=== PATIENT | male | born 1940 | race Caucasian/White ===

== ENCOUNTER 2016-11-29 15:28 | Inpatient (IN) | payer MEDICARE, MEDICAID ==
--- NOTE | 2016-11-29 15:32 | ED Physician Chart ---
ED Chief Complaint/HPI - Patient Information Date Seen:: 11/29/16 Time Seen:: 15:30 Chief Complaint:: Agitation History of Present Illness:: onset x 2 days of agitation, anxiety, and combative behavior; no SIs, hallucinations, H/As, neck pain, C/P, SOB, Abd, pain, A/N/V/D/C, fever, chills, or urinary s/s Historian:: Patient, EMS Review:: Nurse's Note Reviewed, Old Chart Reviewed, EMS run form Reviewed, Transfer documents Reviewed ED Review of Systems - Review of Systems General/Constitutional: No fever, No chills, No weight loss, No weakness, No diaphoresis, No edema, No loss of appetite Skin: No skin lesions, No rash, No bruising Head: No headache, No light-headedness Eyes: No loss of vision, No pain, No diplopia ENT: No earache, No nasal drainage, No sore throat, No tinnitus Neck: No neck pain, No swelling, No thyromegaly, No stiffness, No mass noted Cardio Vascular: No chest pain, No palpitations, No PND, No orthopnea, No edema Pulmonary: No SOB, No cough, No sputum, No wheezing GI: No nausea, No vomiting, No diarrhea, No pain, No melena, No hematochezia, No constipation, No hematemesis G/U: No dysuria, No frequency, No hematuria Musculoskeletal: No bone or joint pain, No back pain, No muscle pain Endocrine: No polyuria, No polydipsia Psychiatric: Prior psych history, Depression, Anxiety, No suicidal ideation, No homicidal ideation, No auditory hallucination, No visual hallucination Hematopoietic: No bruising, No lymphadenopathy Allergic/Immuno: No urticaria, No angioedema Neurological: No syncope, No focal symptoms, No weakness, No paresthesia, No headache, No seizure, No dizziness, Confusion, No vertigo ED Past Medical History - Past Medical History Obtainable: Yes Past Medical History: HTN, CVA/TIA, Dyslipidemia, Dementia, Other (UTI) Family History: Diabetes Melitus, HTN Social History: Non Smoker, No Alcohol, No Drug Use, Single, Care Facility Surgical History: None Psychiatricy History: Bipolar, Dementia Medication: Reviewed Family Medical History - Family Member Mother History Unknown: Yes Ethnicity: ED Physical Exam - Physical Examination General/Constitutional: Awake, Well-developed, well-nourished, Alert, No distress, GCS 15, Non-toxic appearing, Ambulatory Head: Atraumatic Eyes: Lids, conjuctiva normal, PERRL, EOMI Skin: Nl inspection, No rash, No skin lesions, No ecchymosis, Well hydrated, No lymphadenopathy ENMT: External ears, nose nl, Nasal exam nl, Lips, teeth, gums nl Neck: Nontender, Full ROM w/o pain, No JVD, No nuchal rigidity, No bruit, No mass, No stridor Respiratory: Nl effort/Exclusion, Clear to Auscultation, No Wheeze/Rhonchi/Rales Cardio Vascular: RRR, No murmur, gallop, rubs, NL S1 S2 GI: No tenderness/rebounding/guarding, No organomegaly, No hernia, Normal BS's, Nondistended, No mass/bruits, No McBurney tenderness : No CVA tenderness Extremities: No tenderness or effusion, Full ROM, normal strength in all extremities, No edema, Normal digits & nails Neuro/Psych: Alert/oriented, DTR's symmetric, Normal sensory exam, Normal motor strength, Normal gait, No focal deficits Other Neuro/Psych comments:: + Psychomotor Agitation; no SIs; Mood/Affect: Labile Misc: Normal back, No paraspinal tenderness ED Labs/Radiology/EKG Results - Lab Results Comments:: unremarkable ED Septic Shock - . Is Septic Shock (SBP<90, OR Lactate>4 mmol\L) present?: No ED Reassessment (Disposition) - Reassessment Reassessment Condition:: Improved - Diagnosis Diagnosis:: Agitation; Dementia; Manic-Depression; BiPolar Disorder - Aftercare/Follow up Instructions Aftercare/Follow-Up Instructions:: Counseled pt regarding lab results/diagnosis & need follow up, Counseled pt & family regarding lab results/diagnosis & need follow up - Patient Disposition Discharge/Transfer:: Acute Care w/in this hosp Admitted to:: [facility] Condition at Disposition:: Stable, Improved
[2016-11-29 16:05] LABS: % BASOPHILS 0.7 % (0.0-2.0); % LYMPHOCYTES 35.8 % (20.0-50.0); % NEUTROPHILS 54.5 % (40.0-80.0); HEMATOCRIT 45.8 % (41.0-60); HEMOGLOBIN 15.7 gm/dL (12-16); MEAN CELL VOLUME 90.2 fl (80-99); MEAN CORPUSCULAR HEMOGLOBIN 30.9 pg (27.0-31.0); MEAN CORPUSCULAR HGB CONC 34.2 pg (28.0-36.0); MEAN PLATELET VOLUME 8.6 fl; PLATELET COUNT 234 Th/cmm (150-400); RED BLOOD COUNT 5.08 Mil/cmm (3.80-5.80); RED CELL DISTRIBUTION WIDTH 12.9 % (11.5-20.0); WHITE BLOOD COUNT 9.3 Th/cmm (4.8-10.8)
[2016-11-29 16:18] LABS: ACETAMINOPHEN < 10.0 ug/mL (10.0-30.0); ALB/GLOB RATIO 1.6 (1.0-1.8); ALKALINE PHOSPHATASE 58 U/L (34-104); ANION GAP 12.6 (7.0-16.0); BILIRUBIN,TOTAL 0.6 mg/dL (0.3-1.0); BUN - UREA NITROGEN 26 mg/dL (7-25); BUN/CREATININE RATIO 28.9; CALCIUM SERUM 9.1 mg/dL (8.6-10.3); CARBON DIOXIDE 23.4 mEq/L (21.0-31.0); CHLORIDE 106 mEq/L (98-107); CHOLESTEROL 130 mg/dL (<200); CREATININE - SERUM 0.9 mg/dL (0.7-1.3); GLUCOSE 115 mg/dL (70-105); SGOT 21 U/L (13-39); SGPT/ALT 21 U/L (7-52); SODIUM SERUM 138 mEq/L (136-145); TRIGLYCERIDES 193 mg/dL (<150)
[2016-11-29] MEDS ORDERED: Levofloxacin 500mg/100mL 500 MG/100 ML BAG IV ONE (16:18)
[2016-11-29 20:17] VITALS: BP 132/82
[2016-11-29] MEDS ORDERED: Magnesium Hydroxide (MOM) 30 mL UDC PO PRN (20:43)
[2016-11-30] MEDS ORDERED: Non-Formulary Item 1 EA (Cranberry Fruit Concentrate [Cranberry] 450 MG) PO SCH (09:00)
--- NOTE | 2016-11-30 09:22 | History and Physical ---
History of Present Illness - HPI Vital Signs: Last Vital Signs Temp 98 F 11/30/16 06:34 Pulse 69 11/30/16 06:34 Resp 19 11/30/16 06:34 BP 107/67 11/30/16 06:34 Pulse Ox 97 11/30/16 06:34 Family Medical History - Family Member Mother History Unknown: Yes Ethnicity: Unknown Living Status: Unknown Hx Family Cancer: (Unknown) Hx Family Coronary Artery Disease: (Unknown) Hx Family Congestive Heart Failure: (Unknown) Hx Family Hypertension: (Unknown) Hx Family Stroke: (Unknown) Hx Family Diabetes: (Unknown) Hx Family Seizures: (Unknown) Hx Family Dementia: (Unknown) Hx Family AIDS: (Unknown) Hx Family COPD: (Unknown) Hx Family Hepatitis: (Unknown) Hx Family Psychiatric Problems: (Unknown) Hx Family Tuberculosis: (Unknown) - Medications Home Medications: Home Medication Medication Instructions Recorded Type Acetaminophen [Tylenol] 650 mg PO Q4HR PRN 11/29/16 History Cranberry Fruit Concentrate 450 mg PO DAILY 11/29/16 History [Cranberry] Docusate Sodium [Colace] 100 mg PO DAILY 11/29/16 History Zolpidem Tartrate [Ambien] 5 mg PO HS 11/29/16 History busPIRone [Buspar] 5 mg PO BID 11/29/16 History - Allergies Allergies/Adverse Reactions: Allergies Allergy/AdvReac Type Severity Reaction Status Date / Time Penicillins [PCN] AdvReac Verified 11/29/16 15:36 - Lab Results All Lab Results last 24 hours: Laboratory Last Values WBC 9.3 Th/cmm (4.8-10.8) 11/29/16 15:56 RBC 5.08 Mil/cmm (3.80-5.80) 11/29/16 15:56 Hgb 15.7 gm/dL (12-16) 11/29/16 15:56 Hct 45.8 % (41.0-60) 11/29/16 15:56 MCV 90.2 fl (80-99) 11/29/16 15:56 MCH 30.9 pg (27.0-31.0) 11/29/16 15:56 MCHC Differential 34.2 pg (28.0-36.0) 11/29/16 15:56 RDW 12.9 % (11.5-20.0) 11/29/16 15:56 Plt Count 234 Th/cmm (150-400) 11/29/16 15:56 MPV 8.6 fl 11/29/16 15:56 Neutrophils % 54.5 % (40.0-80.0) 11/29/16 15:56 Lymphocytes % 35.8 % (20.0-50.0) 11/29/16 15:56 Monocytes % 7.0 % (2.0-10.0) 11/29/16 15:56 Eosinophils % 2.0 % (0.0-5.0) 11/29/16 15:56 Basophils % 0.7 % (0.0-2.0) 11/29/16 15:56 Sodium 138 mEq/L (136-145) 11/29/16 15:56 Potassium 4.0 mEq/L (3.5-5.1) 11/29/16 15:56 Chloride 106 mEq/L (98-107) 11/29/16 15:56 Carbon Dioxide 23.4 mEq/L (21.0-31.0) 11/29/16 15:56 Anion Gap 12.6 (7.0-16.0) 11/29/16 15:56 BUN 26 mg/dL (7-25) H 11/29/16 15:56 Creatinine 0.9 mg/dL (0.7-1.3) 11/29/16 15:56 Est GFR ( Amer) TNP 11/29/16 15:56 Est GFR (Non-Af Amer) TNP 11/29/16 15:56 BUN/Creatinine Ratio 28.9 11/29/16 15:56 Glucose 115 mg/dL (70-105) H 11/29/16 15:56 Calcium 9.1 mg/dL (8.6-10.3) 11/29/16 15:56 Total Bilirubin 0.6 mg/dL (0.3-1.0) 11/29/16 15:56 AST 21 U/L (13-39) 11/29/16 15:56 ALT 21 U/L (7-52) 11/29/16 15:56 Alkaline Phosphatase 58 U/L (34-104) 11/29/16 15:56 Total Protein 7.0 gm/dL (6.0-8.3) 11/29/16 15:56 Albumin 4.3 gm/dL (4.2-5.5) 11/29/16 15:56 Globulin 2.7 gm/dL 11/29/16 15:56 Albumin/Globulin Ratio 1.6 (1.0-1.8) 11/29/16 15:56 Triglycerides 193 mg/dL (<150) H 11/29/16 15:56 Cholesterol 130 mg/dL (<200) 11/29/16 15:56 LDL Cholesterol Direct 65 mg/dL (75-193) L 11/29/16 15:56 HDL Cholesterol 43 mg/dL (23-92) 11/29/16 15:56 TSH 1.13 uIU/ml (0.34-5.60) 11/29/16 15:56 Salicylates < 25.0 mg/L (30.0-100.0) L 11/29/16 15:56 Acetaminophen < 10.0 ug/mL (10.0-30.0) L 11/29/16 15:56 Ethyl Alcohol < 10 mg/dL (0-10) 11/29/16 15:56
--- NOTE | 2016-11-30 21:59 | History & Physical ---
ADMIT DATE: 11/29/2016 HISTORY OF PRESENT ILLNESS: This is a male patient from [place]. The patient is very agitated and anxious, combative behavior, was brought to the Emergency Room. The patient was seen in the ER and the patient was admitted to Geropsych Unit. The patient is complaining of no fever, no chills, and no rigors. No nausea and no vomiting. REVIEW OF SYSTEMS: Otherwise, negative. PAST MEDICAL HISTORY: History of hypertension and diabetes. No other medical problems. PHYSICAL EXAMINATION: GENERAL: Awake, alert, and oriented male patient. VITAL SIGNS: Noted. HEAD: Normal. ENT: Normal. NECK: Supple, nontender. LUNGS: Clear. CARDIOVASCULAR SYSTEM: S1, S2 heard. ABDOMEN: Soft. Bowel sounds heard. CENTRAL NERVOUS SYSTEM: Grossly normal. DIAGNOSES: Severe agitation, rule out history of diabetes and history of hypertension was made. PLAN: I will follow the medical problems and I will have Dr. Rodriguez see the patient for Geropsych. [facility]# [id number]
--- NOTE | 2016-12-01 01:43 | Psychosocial Evaluation ---
DATE OF SERVICE: 11/29/2016 PHYSICIAN: Dr. Rodriguez. CHIEF COMPLAINT: Agitation and aggressive behavior. HISTORY OF PRESENT ILLNESS: The patient is a 75-year-old male who was transferred to the hospital from assisted because of increased agitation and aggressive behavior. The patient has been in angry and in irritable mood. The patient also has been restless and has not been able to follow any of staff directions. Chart reviewed and patient interviewed. The patient was helped from staff with translation to [place] language since the patient does not speak [place]. The patient is paranoid and is not answering questions because of his paranoia. The patient also is easily agitated and wants to be left alone. The patient also is trying to hit staff during helping him with his ADLs and also when the blasting machine operator tried to speak with him in [place], he became angry, was yelling and wanted to be left alone. He has been having severe mood swings also. Also, the patient seems to be preoccupied and responding. PAST PSYCHIATRIC HISTORY: The patient has history of what seems to be psychosis and agitation. Also, the patient seems to have history of dementia. SOCIAL HISTORY: The patient lives in a assisted ____. No known alcohol or street drug use. ALLERGIES: No known allergies. MENTAL STATUS EXAMINATION: The patient appears his stated age. Anxious. Irritable mood. Thought process, poverty of speech. The patient did not answer questions in spite of having blasting machine operator to [place]. The patient seems to be preoccupied. Personal hygiene is poor. The patient is alert, but unable to assess ____ mental status exam because the patient is refusing to answer questions. Poor insight. Poor judgment. ASSESSMENT: PRIMARY DIAGNOSIS: Unspecified psychosis. SECONDARY DIAGNOSIS: Dementia, moderate to severe. TREATMENT PLAN: We will start the patient on Seroquel and we will increase the BuSpar. We will start individual as well as milieu psychotherapy. We will monitor patient closely for further evaluation and further recommendations. ESTIMATED LENGTH OF STAY: 7-10 days. THE PATIENT'S STRENGTHS AND WEAKNESSES: The patient's strength is not clear except he is ____ health. Weaknesses is his poor impulse control and ineffective coping. AFTER DISCHARGE PLAN: Outpatient treatment and followup will continue as an outpatient. CRITERIA FOR DISCHARGE: The patient will not be psychotic and will stabilize psychotropic medications and will establish outpatient treatment plans. JOB# [id number]
--- NOTE | 2016-12-01 07:06 | Progress Notes ---
DATE: 12/01/2016 SUBJECTIVE: Chart reviewed and the patient interviewed. Also discussed the patient's condition with the staff and reviewed records and labs. The patient still has episodes of severe anger and is still yelling and screaming. The patient also is still resisting care and is easily irritable and easily agitated, also is aggressive with the staff when they are trying to help him with his ADLs. The patient also is confused and restless. He on the other hand has been taking his medications and did not refuse medications yesterday according to staff. ASSESSMENT: The patient is still psychotic and is still considered to be dangerous to others and confused. TREATMENT PLAN: We will continue monitoring his behavior and his condition closely. Also, continue to work on his irritability and on his poor impulse control. JOB# [id number]
--- NOTE | 2016-12-01 10:08 | General Progress Note ---
Subjective - Review of Systems Events since last encounter: patient continues to be psychotic ,unpredictable denies pain Objective - Results Result Diagrams: 11/29/16 15:56 11/29/16 15:56 Recent Labs: Laboratory Last Values WBC 9.3 Th/cmm (4.8-10.8) 11/29/16 15:56 RBC 5.08 Mil/cmm (3.80-5.80) 11/29/16 15:56 Hgb 15.7 gm/dL (12-16) 11/29/16 15:56 Hct 45.8 % (41.0-60) 11/29/16 15:56 MCV 90.2 fl (80-99) 11/29/16 15:56 MCH 30.9 pg (27.0-31.0) 11/29/16 15:56 MCHC Differential 34.2 pg (28.0-36.0) 11/29/16 15:56 RDW 12.9 % (11.5-20.0) 11/29/16 15:56 Plt Count 234 Th/cmm (150-400) 11/29/16 15:56 MPV 8.6 fl 11/29/16 15:56 Neutrophils % 54.5 % (40.0-80.0) 11/29/16 15:56 Lymphocytes % 35.8 % (20.0-50.0) 11/29/16 15:56 Monocytes % 7.0 % (2.0-10.0) 11/29/16 15:56 Eosinophils % 2.0 % (0.0-5.0) 11/29/16 15:56 Basophils % 0.7 % (0.0-2.0) 11/29/16 15:56 Sodium 138 mEq/L (136-145) 11/29/16 15:56 Potassium 4.0 mEq/L (3.5-5.1) 11/29/16 15:56 Chloride 106 mEq/L (98-107) 11/29/16 15:56 Carbon Dioxide 23.4 mEq/L (21.0-31.0) 11/29/16 15:56 Anion Gap 12.6 (7.0-16.0) 11/29/16 15:56 BUN 26 mg/dL (7-25) H 11/29/16 15:56 Creatinine 0.9 mg/dL (0.7-1.3) 11/29/16 15:56 Est GFR ( Amer) TNP 11/29/16 15:56 Est GFR (Non-Af Amer) TNP 11/29/16 15:56 BUN/Creatinine Ratio 28.9 11/29/16 15:56 Glucose 115 mg/dL (70-105) H 11/29/16 15:56 Calcium 9.1 mg/dL (8.6-10.3) 11/29/16 15:56 Total Bilirubin 0.6 mg/dL (0.3-1.0) 11/29/16 15:56 AST 21 U/L (13-39) 11/29/16 15:56 ALT 21 U/L (7-52) 11/29/16 15:56 Alkaline Phosphatase 58 U/L (34-104) 11/29/16 15:56 Total Protein 7.0 gm/dL (6.0-8.3) 11/29/16 15:56 Albumin 4.3 gm/dL (4.2-5.5) 11/29/16 15:56 Globulin 2.7 gm/dL 11/29/16 15:56 Albumin/Globulin Ratio 1.6 (1.0-1.8) 11/29/16 15:56 Triglycerides 193 mg/dL (<150) H 11/29/16 15:56 Cholesterol 130 mg/dL (<200) 11/29/16 15:56 LDL Cholesterol Direct 65 mg/dL (75-193) L 11/29/16 15:56 HDL Cholesterol 43 mg/dL (23-92) 11/29/16 15:56 TSH 1.13 uIU/ml (0.34-5.60) 11/29/16 15:56 Salicylates < 25.0 mg/L (30.0-100.0) L 11/29/16 15:56 Acetaminophen < 10.0 ug/mL (10.0-30.0) L 11/29/16 15:56 Ethyl Alcohol < 10 mg/dL (0-10) 11/29/16 15:56 - Physical Exam Vitals and I&O: Vital Signs Temp 98.3 F 12/01/16 06:54 Pulse 60 12/01/16 06:54 Resp 18 12/01/16 06:54 BP 126/74 12/01/16 06:54 Pulse Ox 96 12/01/16 06:54 Intake & Output 11/30/16 12/01/16 12/01/16 18:59 06:59 18:59 Intake Total 820 Balance 820 Intake: Oral 820 Other: # Voids 3 # Bowel Movements 0 Active Medications: Current Medications Acetaminophen (Tylenol) 650 mg PO Q4HR PRN PRN Reason: Pain (Mild) Stop: 01/28/17 20:56 Buspirone HCl (Buspar) 10 mg PO BID [facility] PRN Reason: Protocol Stop: 01/29/17 08:59 Last Admin: 12/01/16 08:55 Dose: 10 mg Docusate Sodium (Colace) 100 mg PO DAILY [facility] Stop: 01/29/17 08:59 Last Admin: 12/01/16 08:55 Dose: 100 mg Lorazepam (Ativan) 1 mg PO Q6H PRN; Protocol PRN Reason: Anxiety/Agitation Stop: 01/28/17 20:42 Magnesium Hydroxide (Milk Of Magnesia) 30 ml PO HS PRN PRN Reason: Constipation Stop: 01/28/17 20:42 Quetiapine Fumarate (Seroquel) 25 mg PO BID [facility] PRN Reason: Protocol Stop: 01/29/17 08:59 Last Admin: 12/01/16 08:55 Dose: 25 mg Zolpidem Tartrate (Ambien) 5 mg PO HS [facility] Stop: 01/28/17 20:59 Last Admin: 11/30/16 20:56 Dose: 5 mg
--- NOTE | 2016-12-01 13:34 | Internal Medicine Prog Note ---
Internal Medicine Subjective - Subjective Service Date: 12/01/16 Patient seen and examined:: with staff Patient is:: awake Per staff patient has:: no adverse event Internal Medicine Objective - Results Result Diagrams: 11/29/16 15:56 11/29/16 15:56 Recent Labs: Laboratory Last Values WBC 9.3 Th/cmm (4.8-10.8) 11/29/16 15:56 RBC 5.08 Mil/cmm (3.80-5.80) 11/29/16 15:56 Hgb 15.7 gm/dL (12-16) 11/29/16 15:56 Hct 45.8 % (41.0-60) 11/29/16 15:56 MCV 90.2 fl (80-99) 11/29/16 15:56 MCH 30.9 pg (27.0-31.0) 11/29/16 15:56 MCHC Differential 34.2 pg (28.0-36.0) 11/29/16 15:56 RDW 12.9 % (11.5-20.0) 11/29/16 15:56 Plt Count 234 Th/cmm (150-400) 11/29/16 15:56 MPV 8.6 fl 11/29/16 15:56 Neutrophils % 54.5 % (40.0-80.0) 11/29/16 15:56 Lymphocytes % 35.8 % (20.0-50.0) 11/29/16 15:56 Monocytes % 7.0 % (2.0-10.0) 11/29/16 15:56 Eosinophils % 2.0 % (0.0-5.0) 11/29/16 15:56 Basophils % 0.7 % (0.0-2.0) 11/29/16 15:56 Sodium 138 mEq/L (136-145) 11/29/16 15:56 Potassium 4.0 mEq/L (3.5-5.1) 11/29/16 15:56 Chloride 106 mEq/L (98-107) 11/29/16 15:56 Carbon Dioxide 23.4 mEq/L (21.0-31.0) 11/29/16 15:56 Anion Gap 12.6 (7.0-16.0) 11/29/16 15:56 BUN 26 mg/dL (7-25) H 11/29/16 15:56 Creatinine 0.9 mg/dL (0.7-1.3) 11/29/16 15:56 Est GFR ( Amer) TNP 11/29/16 15:56 Est GFR (Non-Af Amer) TNP 11/29/16 15:56 BUN/Creatinine Ratio 28.9 11/29/16 15:56 Glucose 115 mg/dL (70-105) H 11/29/16 15:56 Calcium 9.1 mg/dL (8.6-10.3) 11/29/16 15:56 Total Bilirubin 0.6 mg/dL (0.3-1.0) 11/29/16 15:56 AST 21 U/L (13-39) 11/29/16 15:56 ALT 21 U/L (7-52) 11/29/16 15:56 Alkaline Phosphatase 58 U/L (34-104) 11/29/16 15:56 Total Protein 7.0 gm/dL (6.0-8.3) 11/29/16 15:56 Albumin 4.3 gm/dL (4.2-5.5) 11/29/16 15:56 Globulin 2.7 gm/dL 11/29/16 15:56 Albumin/Globulin Ratio 1.6 (1.0-1.8) 11/29/16 15:56 Triglycerides 193 mg/dL (<150) H 11/29/16 15:56 Cholesterol 130 mg/dL (<200) 11/29/16 15:56 LDL Cholesterol Direct 65 mg/dL (75-193) L 11/29/16 15:56 HDL Cholesterol 43 mg/dL (23-92) 11/29/16 15:56 TSH 1.13 uIU/ml (0.34-5.60) 11/29/16 15:56 Salicylates < 25.0 mg/L (30.0-100.0) L 11/29/16 15:56 Acetaminophen < 10.0 ug/mL (10.0-30.0) L 11/29/16 15:56 Ethyl Alcohol < 10 mg/dL (0-10) 11/29/16 15:56 - Physical Exam Vitals and I&O: Vital Signs Temp 98.3 F 12/01/16 06:54 Pulse 60 12/01/16 06:54 Resp 18 12/01/16 06:54 BP 126/74 12/01/16 06:54 Pulse Ox 96 12/01/16 06:54 Intake & Output 11/30/16 12/01/16 12/01/16 18:59 06:59 18:59 Intake Total 820 Balance 820 Intake: Oral 820 Other: # Voids 3 # Bowel Movements 0 Active Medications: Current Medications Acetaminophen (Tylenol) 650 mg PO Q4HR PRN PRN Reason: Pain (Mild) Stop: 01/28/17 20:56 Buspirone HCl (Buspar) 10 mg PO BID [facility] PRN Reason: Protocol Stop: 01/29/17 08:59 Last Admin: 12/01/16 08:55 Dose: 10 mg Docusate Sodium (Colace) 100 mg PO DAILY [facility] Stop: 01/29/17 08:59 Last Admin: 12/01/16 08:55 Dose: 100 mg Lorazepam (Ativan) 1 mg PO Q6H PRN; Protocol PRN Reason: Anxiety/Agitation Stop: 01/28/17 20:42 Magnesium Hydroxide (Milk Of Magnesia) 30 ml PO HS PRN PRN Reason: Constipation Stop: 01/28/17 20:42 Quetiapine Fumarate (Seroquel) 25 mg PO BID [facility] PRN Reason: Protocol Stop: 01/29/17 08:59 Last Admin: 12/01/16 08:55 Dose: 25 mg Zolpidem Tartrate (Ambien) 5 mg PO HS [facility] Stop: 01/28/17 20:59 Last Admin: 11/30/16 20:56 Dose: 5 mg General: alert HEENT: NC/AT, PERRLA Neck: Supple Lungs: CTAB Cardiovascular: RRR Abdomen: soft, non-tender, non-distended, positive bowel sound Extremities: excoriation Internal Medicine Assmt/Plan - Assessment Assessment: SEVERE AGITATION R/O DM HTN - Plan Plan: fall precautions continue current plan of care
--- NOTE | 2016-12-03 09:29 | General Progress Note ---
Subjective - Review of Systems Events since last encounter: no acute distress Objective - Results Result Diagrams: 11/29/16 15:56 11/29/16 15:56 Recent Labs: Laboratory Last Values WBC 9.3 Th/cmm (4.8-10.8) 11/29/16 15:56 RBC 5.08 Mil/cmm (3.80-5.80) 11/29/16 15:56 Hgb 15.7 gm/dL (12-16) 11/29/16 15:56 Hct 45.8 % (41.0-60) 11/29/16 15:56 MCV 90.2 fl (80-99) 11/29/16 15:56 MCH 30.9 pg (27.0-31.0) 11/29/16 15:56 MCHC Differential 34.2 pg (28.0-36.0) 11/29/16 15:56 RDW 12.9 % (11.5-20.0) 11/29/16 15:56 Plt Count 234 Th/cmm (150-400) 11/29/16 15:56 MPV 8.6 fl 11/29/16 15:56 Neutrophils % 54.5 % (40.0-80.0) 11/29/16 15:56 Lymphocytes % 35.8 % (20.0-50.0) 11/29/16 15:56 Monocytes % 7.0 % (2.0-10.0) 11/29/16 15:56 Eosinophils % 2.0 % (0.0-5.0) 11/29/16 15:56 Basophils % 0.7 % (0.0-2.0) 11/29/16 15:56 Sodium 138 mEq/L (136-145) 11/29/16 15:56 Potassium 4.0 mEq/L (3.5-5.1) 11/29/16 15:56 Chloride 106 mEq/L (98-107) 11/29/16 15:56 Carbon Dioxide 23.4 mEq/L (21.0-31.0) 11/29/16 15:56 Anion Gap 12.6 (7.0-16.0) 11/29/16 15:56 BUN 26 mg/dL (7-25) H 11/29/16 15:56 Creatinine 0.9 mg/dL (0.7-1.3) 11/29/16 15:56 Est GFR ( Amer) TNP 11/29/16 15:56 Est GFR (Non-Af Amer) TNP 11/29/16 15:56 BUN/Creatinine Ratio 28.9 11/29/16 15:56 Glucose 115 mg/dL (70-105) H 11/29/16 15:56 Calcium 9.1 mg/dL (8.6-10.3) 11/29/16 15:56 Total Bilirubin 0.6 mg/dL (0.3-1.0) 11/29/16 15:56 AST 21 U/L (13-39) 11/29/16 15:56 ALT 21 U/L (7-52) 11/29/16 15:56 Alkaline Phosphatase 58 U/L (34-104) 11/29/16 15:56 Total Protein 7.0 gm/dL (6.0-8.3) 11/29/16 15:56 Albumin 4.3 gm/dL (4.2-5.5) 11/29/16 15:56 Globulin 2.7 gm/dL 11/29/16 15:56 Albumin/Globulin Ratio 1.6 (1.0-1.8) 11/29/16 15:56 Triglycerides 193 mg/dL (<150) H 11/29/16 15:56 Cholesterol 130 mg/dL (<200) 11/29/16 15:56 LDL Cholesterol Direct 65 mg/dL (75-193) L 11/29/16 15:56 HDL Cholesterol 43 mg/dL (23-92) 11/29/16 15:56 TSH 1.13 uIU/ml (0.34-5.60) 11/29/16 15:56 Salicylates < 25.0 mg/L (30.0-100.0) L 11/29/16 15:56 Acetaminophen < 10.0 ug/mL (10.0-30.0) L 11/29/16 15:56 Ethyl Alcohol < 10 mg/dL (0-10) 11/29/16 15:56 RPR NONREACTIVE (NONREACTIVE) 11/29/16 15:56 - Physical Exam Vitals and I&O: Vital Signs Temp 97.8 F 12/03/16 06:52 Pulse 94 12/03/16 06:52 Resp 19 12/03/16 06:52 BP 141/80 12/03/16 06:52 Pulse Ox 96 12/03/16 06:52 Intake & Output 12/02/16 12/03/16 12/03/16 18:59 06:59 18:59 Intake Total 850 240 Balance 850 240 Intake: Oral 850 240 Other: # Voids 4 1 # Bowel Movements 1 Active Medications: Current Medications Acetaminophen (Tylenol) 650 mg PO Q4HR PRN PRN Reason: Pain (Mild) Stop: 01/28/17 20:56 Buspirone HCl (Buspar) 10 mg PO BID [facility] PRN Reason: Protocol Stop: 01/29/17 08:59 Last Admin: 12/02/16 17:19 Dose: 10 mg Docusate Sodium (Colace) 100 mg PO DAILY [facility] Stop: 01/29/17 08:59 Last Admin: 12/02/16 14:47 Dose: Not Given Lorazepam (Ativan) 1 mg PO Q6H PRN; Protocol PRN Reason: Anxiety/Agitation Stop: 01/28/17 20:42 Last Admin: 12/03/16 00:17 Dose: 1 mg Magnesium Hydroxide (Milk Of Magnesia) 30 ml PO HS PRN PRN Reason: Constipation Stop: 01/28/17 20:42 Quetiapine Fumarate (Seroquel) 25 mg PO BID [facility] PRN Reason: Protocol Stop: 01/29/17 08:59 Last Admin: 12/02/16 17:20 Dose: 25 mg Zolpidem Tartrate (Ambien) 5 mg PO HS ELVA Stop: 01/28/17 20:59 Last Admin: 12/02/16 21:52 Dose: 5 mg General: No acute distress HEENT: Atraumatic Cardiovascular: Regular rate, Normal S1 Assessment/Plan - Problem List Patient Problems: All Active Problems H/O diabetes mellitus (Acute) Z86.39 H/O: HTN (hypertension) (Acute) Z86.79 severe agitation (Acute) - Plan Plan: cpm
--- NOTE | 2016-12-03 09:53 | Progress Notes ---
DATE: Covering for Dr. Rodriguez. SUBJECTIVE: The patient was seen and evaluated. The patient's chart reviewed. Overnight nursing staff reporting the patient reports that the patient is easily irritable, easily agitated, disorganized and observed to be hearing voices. Today on [id number] evaluation, the patient is observed to be having very difficult to engage in the conversation as he easily derails, unable to engage in meaningful conversation. MENTAL STATUS EXAMINATION: Disorganized disheveled, isolative, withdrawn, disorganized. ASSESSMENT AND PLAN: The patient is a 75-year-old male who continues to present labile, psychotic, but still episodes of severe anger, yelling, screaming, unable to formulate a safe plan outside the structured environment. We will continue with primary psychiatrist's treatment plan and goals of quetiapine 25 mg p.o. b.i.d. as he is still reaching steady state and Ambien 5 in the at nighttime with BuSpar to assist with the severe anxiety. We will continue monitoring and evaluating and continue with primary psychiatrist's treatment plan and goals. JOB# [id number]
--- NOTE | 2016-12-03 20:56 | Progress Notes ---
DATE: 12/03/2016 SUBJECTIVE: The patient was seen and evaluated. The patient's chart was reviewed. Overnight nursing staff reported the patient has not slept well. He mostly was up all night. Today on [id number] evaluation, the patient continues to be easily disorganized, observed to be responding, and very preoccupied about going home and very confused easily derails. MENTAL STATUS EXAMINATION: Easily derails, isolative, disorganized, disheveled, and withdrawn. ASSESSMENT AND PLAN: The patient is a 75-year-old male who continues to be still very labile, very poor insomnia that impaired his ability to sleep well, exacerbating a lot of his symptoms. We will continue monitoring and evaluating. We will continue consolidating the quetiapine 50 mg at nighttime to target the patient's severe which exacerbates the patient's insomnia and paranoia. JOB# [id number]
--- NOTE | 2016-12-04 11:19 | Progress Notes ---
DATE: 12/04/2016 SUBJECTIVE: Chart reviewed and the patient interviewed. Also discussed the patient's condition with the staff and reviewed records and labs. The patient continued to be in angry and in irritable mood and actively hallucinating. The patient reports to staff that he is seeing "scorpions." He also has been paranoid and has been easily agitated and suspicious and fighting with the staff. Also, is having difficulty following directions. ASSESSMENT: The patient is still severely psychotic and is still easily agitated and can be dangerous to others. TREATMENT PLAN: We will continue monitoring his behavior and his condition closely. Also, we will increase Seroquel to 50 mg twice a day and 50 mg at bedtime. We will continue to follow up. JOB# [id number]
--- NOTE | 2016-12-04 14:07 | Internal Medicine Prog Note ---
Internal Medicine Subjective - Subjective Service Date: 12/04/16 Patient is:: awake Per staff patient has:: no adverse event Internal Medicine Objective - Results Result Diagrams: 11/29/16 15:56 11/29/16 15:56 Recent Labs: Laboratory Last Values WBC 9.3 Th/cmm (4.8-10.8) 11/29/16 15:56 RBC 5.08 Mil/cmm (3.80-5.80) 11/29/16 15:56 Hgb 15.7 gm/dL (12-16) 11/29/16 15:56 Hct 45.8 % (41.0-60) 11/29/16 15:56 MCV 90.2 fl (80-99) 11/29/16 15:56 MCH 30.9 pg (27.0-31.0) 11/29/16 15:56 MCHC Differential 34.2 pg (28.0-36.0) 11/29/16 15:56 RDW 12.9 % (11.5-20.0) 11/29/16 15:56 Plt Count 234 Th/cmm (150-400) 11/29/16 15:56 MPV 8.6 fl 11/29/16 15:56 Neutrophils % 54.5 % (40.0-80.0) 11/29/16 15:56 Lymphocytes % 35.8 % (20.0-50.0) 11/29/16 15:56 Monocytes % 7.0 % (2.0-10.0) 11/29/16 15:56 Eosinophils % 2.0 % (0.0-5.0) 11/29/16 15:56 Basophils % 0.7 % (0.0-2.0) 11/29/16 15:56 Sodium 138 mEq/L (136-145) 11/29/16 15:56 Potassium 4.0 mEq/L (3.5-5.1) 11/29/16 15:56 Chloride 106 mEq/L (98-107) 11/29/16 15:56 Carbon Dioxide 23.4 mEq/L (21.0-31.0) 11/29/16 15:56 Anion Gap 12.6 (7.0-16.0) 11/29/16 15:56 BUN 26 mg/dL (7-25) H 11/29/16 15:56 Creatinine 0.9 mg/dL (0.7-1.3) 11/29/16 15:56 Est GFR ( Amer) TNP 11/29/16 15:56 Est GFR (Non-Af Amer) TNP 11/29/16 15:56 BUN/Creatinine Ratio 28.9 11/29/16 15:56 Glucose 115 mg/dL (70-105) H 11/29/16 15:56 Calcium 9.1 mg/dL (8.6-10.3) 11/29/16 15:56 Total Bilirubin 0.6 mg/dL (0.3-1.0) 11/29/16 15:56 AST 21 U/L (13-39) 11/29/16 15:56 ALT 21 U/L (7-52) 11/29/16 15:56 Alkaline Phosphatase 58 U/L (34-104) 11/29/16 15:56 Total Protein 7.0 gm/dL (6.0-8.3) 11/29/16 15:56 Albumin 4.3 gm/dL (4.2-5.5) 11/29/16 15:56 Globulin 2.7 gm/dL 11/29/16 15:56 Albumin/Globulin Ratio 1.6 (1.0-1.8) 11/29/16 15:56 Triglycerides 193 mg/dL (<150) H 11/29/16 15:56 Cholesterol 130 mg/dL (<200) 11/29/16 15:56 LDL Cholesterol Direct 65 mg/dL (75-193) L 11/29/16 15:56 HDL Cholesterol 43 mg/dL (23-92) 11/29/16 15:56 TSH 1.13 uIU/ml (0.34-5.60) 11/29/16 15:56 Salicylates < 25.0 mg/L (30.0-100.0) L 11/29/16 15:56 Acetaminophen < 10.0 ug/mL (10.0-30.0) L 11/29/16 15:56 Ethyl Alcohol < 10 mg/dL (0-10) 11/29/16 15:56 RPR NONREACTIVE (NONREACTIVE) 11/29/16 15:56 - Physical Exam Vitals and I&O: Vital Signs Temp 97.7 F 12/04/16 06:52 Pulse 71 12/04/16 06:52 Resp 18 12/04/16 06:52 BP 115/56 12/04/16 06:52 Pulse Ox 95 12/04/16 06:52 Intake & Output 12/03/16 12/04/16 12/04/16 18:59 06:59 18:59 Intake Total 800 240 Balance 800 240 Intake: Oral 800 240 Other: # Voids 4 3 # Bowel Movements 1 0 Active Medications: Current Medications Acetaminophen (Tylenol) 650 mg PO Q4HR PRN PRN Reason: Pain (Mild) Stop: 01/28/17 20:56 Buspirone HCl (Buspar) 10 mg PO BID [facility] PRN Reason: Protocol Stop: 01/29/17 08:59 Last Admin: 12/03/16 16:39 Dose: 10 mg Docusate Sodium (Colace) 100 mg PO DAILY [facility] Stop: 01/29/17 08:59 Last Admin: 12/03/16 09:49 Dose: 100 mg Lorazepam (Ativan) 1 mg PO Q6H PRN; Protocol PRN Reason: Anxiety/Agitation Stop: 01/28/17 20:42 Last Admin: 12/03/16 23:02 Dose: 1 mg Magnesium Hydroxide (Milk Of Magnesia) 30 ml PO HS PRN PRN Reason: Constipation Stop: 01/28/17 20:42 Quetiapine Fumarate (Seroquel) 50 mg PO BID [facility] PRN Reason: Protocol Stop: 02/01/17 16:59 Last Admin: 12/03/16 16:39 Dose: 50 mg Zolpidem Tartrate (Ambien) 5 mg PO HS [facility] Stop: 01/28/17 20:59 Last Admin: 12/03/16 21:16 Dose: 5 mg General: alert HEENT: NC/AT, PERRLA Neck: Supple Lungs: CTAB Cardiovascular: RRR Abdomen: soft, non-tender, non-distended, positive bowel sound Extremities: excoriation Internal Medicine Assmt/Plan - Assessment Assessment: SEVERE AGITATION R/O DM HTN - Plan Plan: fall precautions continue current plan of care
--- NOTE | 2016-12-04 17:23 | Progress Notes ---
DATE: SUBJECTIVE: The patient was seen in his room, lying on the bed. The patient is a poor historian due to medical condition. According to the nurses, the patient still has episodes of confusion, restlessness, and agitation. Otherwise, the patient appears to be calm at this time. OBJECTIVE: VITAL SIGNS: Temperature 98.4, blood pressure 110/64, heart rate ____, respiration of 18, and 96% on room air. HEENT: Head is atraumatic and normocephalic. Eyes: Bilateral conjunctivae are clear. Bilateral pupils are equally round and reactive. NECK: Supple. No JVD. CARDIOVASCULAR: S1 and S2, without murmur. PULMONARY: Clear to auscultation. GASTROINTESTINAL: Soft and nontender without guarding. Positive bowel sounds. MUSCULOSKELETAL: No clubbing, no cyanosis noted. ASSESSMENT: 1. Psychosis. 2. Anxiety. 3. History of hypertension. 4. History of diabetes mellitus. 5. Osteoarthritis. PLAN: We will continue to keep the patient admitted in Psychiatric Unit. We will follow up with the psychiatrist to monitor the patient's condition and behavior. Treatment plans were discussed with the patient's nurse. Treatment plans were discussed with Dr. Rolle. JOB# [id number]
--- NOTE | 2016-12-05 15:11 | General Progress Note ---
Subjective - Review of Systems Events since last encounter: patient still psychotic Objective - Results Result Diagrams: 11/29/16 15:56 11/29/16 15:56 Recent Labs: Laboratory Last Values WBC 9.3 Th/cmm (4.8-10.8) 11/29/16 15:56 RBC 5.08 Mil/cmm (3.80-5.80) 11/29/16 15:56 Hgb 15.7 gm/dL (12-16) 11/29/16 15:56 Hct 45.8 % (41.0-60) 11/29/16 15:56 MCV 90.2 fl (80-99) 11/29/16 15:56 MCH 30.9 pg (27.0-31.0) 11/29/16 15:56 MCHC Differential 34.2 pg (28.0-36.0) 11/29/16 15:56 RDW 12.9 % (11.5-20.0) 11/29/16 15:56 Plt Count 234 Th/cmm (150-400) 11/29/16 15:56 MPV 8.6 fl 11/29/16 15:56 Neutrophils % 54.5 % (40.0-80.0) 11/29/16 15:56 Lymphocytes % 35.8 % (20.0-50.0) 11/29/16 15:56 Monocytes % 7.0 % (2.0-10.0) 11/29/16 15:56 Eosinophils % 2.0 % (0.0-5.0) 11/29/16 15:56 Basophils % 0.7 % (0.0-2.0) 11/29/16 15:56 Sodium 138 mEq/L (136-145) 11/29/16 15:56 Potassium 4.0 mEq/L (3.5-5.1) 11/29/16 15:56 Chloride 106 mEq/L (98-107) 11/29/16 15:56 Carbon Dioxide 23.4 mEq/L (21.0-31.0) 11/29/16 15:56 Anion Gap 12.6 (7.0-16.0) 11/29/16 15:56 BUN 26 mg/dL (7-25) H 11/29/16 15:56 Creatinine 0.9 mg/dL (0.7-1.3) 11/29/16 15:56 Est GFR ( Amer) TNP 11/29/16 15:56 Est GFR (Non-Af Amer) TNP 11/29/16 15:56 BUN/Creatinine Ratio 28.9 11/29/16 15:56 Glucose 115 mg/dL (70-105) H 11/29/16 15:56 Calcium 9.1 mg/dL (8.6-10.3) 11/29/16 15:56 Total Bilirubin 0.6 mg/dL (0.3-1.0) 11/29/16 15:56 AST 21 U/L (13-39) 11/29/16 15:56 ALT 21 U/L (7-52) 11/29/16 15:56 Alkaline Phosphatase 58 U/L (34-104) 11/29/16 15:56 Total Protein 7.0 gm/dL (6.0-8.3) 11/29/16 15:56 Albumin 4.3 gm/dL (4.2-5.5) 11/29/16 15:56 Globulin 2.7 gm/dL 11/29/16 15:56 Albumin/Globulin Ratio 1.6 (1.0-1.8) 11/29/16 15:56 Triglycerides 193 mg/dL (<150) H 11/29/16 15:56 Cholesterol 130 mg/dL (<200) 11/29/16 15:56 LDL Cholesterol Direct 65 mg/dL (75-193) L 11/29/16 15:56 HDL Cholesterol 43 mg/dL (23-92) 11/29/16 15:56 TSH 1.13 uIU/ml (0.34-5.60) 11/29/16 15:56 Salicylates < 25.0 mg/L (30.0-100.0) L 11/29/16 15:56 Acetaminophen < 10.0 ug/mL (10.0-30.0) L 11/29/16 15:56 Ethyl Alcohol < 10 mg/dL (0-10) 11/29/16 15:56 RPR NONREACTIVE (NONREACTIVE) 11/29/16 15:56 - Physical Exam Vitals and I&O: Vital Signs Temp 97.0 F 12/05/16 14:28 Pulse 70 12/05/16 14:28 Resp 20 12/05/16 14:28 BP 128/63 12/05/16 14:28 Pulse Ox 96 12/05/16 14:28 Intake & Output 12/04/16 12/05/16 12/05/16 18:59 06:59 18:59 Intake Total 1800 360 Balance 1800 360 Intake: Oral 1800 360 Other: # Voids 4 1 # Bowel Movements 0 Active Medications: Current Medications Acetaminophen (Tylenol) 650 mg PO Q4HR PRN PRN Reason: Pain (Mild) Stop: 01/28/17 20:56 Buspirone HCl (Buspar) 10 mg PO BID [facility] PRN Reason: Protocol Stop: 01/29/17 08:59 Last Admin: 12/05/16 09:11 Dose: 10 mg Docusate Sodium (Colace) 100 mg PO DAILY [facility] Stop: 01/29/17 08:59 Last Admin: 12/05/16 09:11 Dose: 100 mg Lorazepam (Ativan) 1 mg PO Q6H PRN; Protocol PRN Reason: Anxiety/Agitation Stop: 01/28/17 20:42 Last Admin: 12/03/16 23:02 Dose: 1 mg Magnesium Hydroxide (Milk Of Magnesia) 30 ml PO HS PRN PRN Reason: Constipation Stop: 01/28/17 20:42 Quetiapine Fumarate (Seroquel) 50 mg PO BID [facility] PRN Reason: Protocol Stop: 02/01/17 16:59 Last Admin: 12/05/16 09:11 Dose: 50 mg Zolpidem Tartrate (Ambien) 5 mg PO HS [facility] Stop: 01/28/17 20:59 Last Admin: 12/04/16 23:15 Dose: Not Given General: No acute distress HEENT: Atraumatic Cardiovascular: Regular rate, Normal S1 Assessment/Plan - Problem List Patient Problems: All Active Problems H/O diabetes mellitus (Acute) Z86.39 H/O: HTN (hypertension) (Acute) Z86.79 severe agitation (Acute) - Plan Plan: cpm
--- NOTE | 2016-12-06 11:52 | General Progress Note ---
Subjective - Review of Systems Events since last encounter: patient awake with no distress still psychotic Objective - Results Result Diagrams: 11/29/16 15:56 11/29/16 15:56 Recent Labs: Laboratory Last Values WBC 9.3 Th/cmm (4.8-10.8) 11/29/16 15:56 RBC 5.08 Mil/cmm (3.80-5.80) 11/29/16 15:56 Hgb 15.7 gm/dL (12-16) 11/29/16 15:56 Hct 45.8 % (41.0-60) 11/29/16 15:56 MCV 90.2 fl (80-99) 11/29/16 15:56 MCH 30.9 pg (27.0-31.0) 11/29/16 15:56 MCHC Differential 34.2 pg (28.0-36.0) 11/29/16 15:56 RDW 12.9 % (11.5-20.0) 11/29/16 15:56 Plt Count 234 Th/cmm (150-400) 11/29/16 15:56 MPV 8.6 fl 11/29/16 15:56 Neutrophils % 54.5 % (40.0-80.0) 11/29/16 15:56 Lymphocytes % 35.8 % (20.0-50.0) 11/29/16 15:56 Monocytes % 7.0 % (2.0-10.0) 11/29/16 15:56 Eosinophils % 2.0 % (0.0-5.0) 11/29/16 15:56 Basophils % 0.7 % (0.0-2.0) 11/29/16 15:56 Sodium 138 mEq/L (136-145) 11/29/16 15:56 Potassium 4.0 mEq/L (3.5-5.1) 11/29/16 15:56 Chloride 106 mEq/L (98-107) 11/29/16 15:56 Carbon Dioxide 23.4 mEq/L (21.0-31.0) 11/29/16 15:56 Anion Gap 12.6 (7.0-16.0) 11/29/16 15:56 BUN 26 mg/dL (7-25) H 11/29/16 15:56 Creatinine 0.9 mg/dL (0.7-1.3) 11/29/16 15:56 Est GFR ( Amer) TNP 11/29/16 15:56 Est GFR (Non-Af Amer) TNP 11/29/16 15:56 BUN/Creatinine Ratio 28.9 11/29/16 15:56 Glucose 115 mg/dL (70-105) H 11/29/16 15:56 Calcium 9.1 mg/dL (8.6-10.3) 11/29/16 15:56 Total Bilirubin 0.6 mg/dL (0.3-1.0) 11/29/16 15:56 AST 21 U/L (13-39) 11/29/16 15:56 ALT 21 U/L (7-52) 11/29/16 15:56 Alkaline Phosphatase 58 U/L (34-104) 11/29/16 15:56 Total Protein 7.0 gm/dL (6.0-8.3) 11/29/16 15:56 Albumin 4.3 gm/dL (4.2-5.5) 11/29/16 15:56 Globulin 2.7 gm/dL 11/29/16 15:56 Albumin/Globulin Ratio 1.6 (1.0-1.8) 11/29/16 15:56 Triglycerides 193 mg/dL (<150) H 11/29/16 15:56 Cholesterol 130 mg/dL (<200) 11/29/16 15:56 LDL Cholesterol Direct 65 mg/dL (75-193) L 11/29/16 15:56 HDL Cholesterol 43 mg/dL (23-92) 11/29/16 15:56 TSH 1.13 uIU/ml (0.34-5.60) 11/29/16 15:56 Salicylates < 25.0 mg/L (30.0-100.0) L 11/29/16 15:56 Acetaminophen < 10.0 ug/mL (10.0-30.0) L 11/29/16 15:56 Ethyl Alcohol < 10 mg/dL (0-10) 11/29/16 15:56 RPR NONREACTIVE (NONREACTIVE) 11/29/16 15:56 - Physical Exam Vitals and I&O: Vital Signs Temp 97.7 F 12/06/16 05:39 Pulse 61 12/06/16 05:39 Resp 19 12/06/16 05:39 BP 127/73 12/06/16 05:39 Pulse Ox 97 12/06/16 05:39 Intake & Output 12/05/16 12/06/16 12/06/16 18:59 06:59 18:59 Intake Total 800 120 Balance 800 120 Intake: Oral 800 120 Other: # Voids 3 3 # Bowel Movements 0 0 Active Medications: Current Medications Acetaminophen (Tylenol) 650 mg PO Q4HR PRN PRN Reason: Pain (Mild) Stop: 01/28/17 20:56 Buspirone HCl (Buspar) 10 mg PO BID [facility] PRN Reason: Protocol Stop: 01/29/17 08:59 Last Admin: 12/06/16 08:26 Dose: 10 mg Docusate Sodium (Colace) 100 mg PO DAILY [facility] Stop: 01/29/17 08:59 Last Admin: 12/06/16 08:27 Dose: 100 mg Lorazepam (Ativan) 1 mg PO Q6H PRN; Protocol PRN Reason: Anxiety/Agitation Stop: 01/28/17 20:42 Last Admin: 12/03/16 23:02 Dose: 1 mg Magnesium Hydroxide (Milk Of Magnesia) 30 ml PO HS PRN PRN Reason: Constipation Stop: 01/28/17 20:42 Quetiapine Fumarate (Seroquel) 50 mg PO BID [facility] PRN Reason: Protocol Stop: 02/01/17 16:59 Last Admin: 12/06/16 08:27 Dose: 50 mg Zolpidem Tartrate (Ambien) 5 mg PO HS [facility] Stop: 01/28/17 20:59 Last Admin: 12/05/16 22:19 Dose: Not Given General: No acute distress HEENT: Atraumatic Cardiovascular: Regular rate, Normal S1 Assessment/Plan - Problem List Patient Problems: All Active Problems H/O diabetes mellitus (Acute) Z86.39 H/O: HTN (hypertension) (Acute) Z86.79 severe agitation (Acute) - Plan Plan: cpm
--- NOTE | 2016-12-06 17:52 | Progress Notes ---
DATE: SUBJECTIVE: Chart reviewed and the patient interviewed. Also, discussed the patient's condition with the staff and reviewed records and labs. The patient is still having episodes of severe agitation with yelling and screaming behavior, but seems to be slightly less. The patient also is still actively hallucinating and talking to himself and whispering. He also is still restless and he is still in a depressed mood. Otherwise, the patient continued to comply with taking his medications and no side effects of medications. I did increase Seroquel to 50 mg twice a day with no side effects. ASSESSMENT: The patient is still psychotic and agitated. TREATMENT PLAN: We will continue monitoring his behavior and his condition closely. Also, continue to work on his poor impulse control and anger, and we will continue to follow up. [facility]# [id number]
--- NOTE | 2016-12-06 18:01 | Progress Notes ---
DATE: 12/05/2016 SUBJECTIVE: Chart reviewed and the patient interviewed. Also discussed the patient's condition with the staff and reviewed records and labs. The patient is still anxious and is still in irritable and angry mood. The patient also is restless and he is still severely paranoid and aggressive. He also is still reporting visual hallucinations and seeing scorpions. He also had difficulty following any of staffs' directions. During interview, the patient is rambling and disorganized thoughts. TREATMENT PLAN: We will continue monitoring his behavior and his condition closely. Also, we will continue Seroquel in a dose of 50 mg twice a day and we will continue to work on his poor impulse control and his agitation. [facility]# [id number]
--- NOTE | 2016-12-07 10:20 | General Progress Note ---
Subjective - Review of Systems Events since last encounter: patient awake alert no acute distress Objective - Results Result Diagrams: 11/29/16 15:56 11/29/16 15:56 Recent Labs: Laboratory Last Values WBC 9.3 Th/cmm (4.8-10.8) 11/29/16 15:56 RBC 5.08 Mil/cmm (3.80-5.80) 11/29/16 15:56 Hgb 15.7 gm/dL (12-16) 11/29/16 15:56 Hct 45.8 % (41.0-60) 11/29/16 15:56 MCV 90.2 fl (80-99) 11/29/16 15:56 MCH 30.9 pg (27.0-31.0) 11/29/16 15:56 MCHC Differential 34.2 pg (28.0-36.0) 11/29/16 15:56 RDW 12.9 % (11.5-20.0) 11/29/16 15:56 Plt Count 234 Th/cmm (150-400) 11/29/16 15:56 MPV 8.6 fl 11/29/16 15:56 Neutrophils % 54.5 % (40.0-80.0) 11/29/16 15:56 Lymphocytes % 35.8 % (20.0-50.0) 11/29/16 15:56 Monocytes % 7.0 % (2.0-10.0) 11/29/16 15:56 Eosinophils % 2.0 % (0.0-5.0) 11/29/16 15:56 Basophils % 0.7 % (0.0-2.0) 11/29/16 15:56 Sodium 138 mEq/L (136-145) 11/29/16 15:56 Potassium 4.0 mEq/L (3.5-5.1) 11/29/16 15:56 Chloride 106 mEq/L (98-107) 11/29/16 15:56 Carbon Dioxide 23.4 mEq/L (21.0-31.0) 11/29/16 15:56 Anion Gap 12.6 (7.0-16.0) 11/29/16 15:56 BUN 26 mg/dL (7-25) H 11/29/16 15:56 Creatinine 0.9 mg/dL (0.7-1.3) 11/29/16 15:56 Est GFR ( Amer) TNP 11/29/16 15:56 Est GFR (Non-Af Amer) TNP 11/29/16 15:56 BUN/Creatinine Ratio 28.9 11/29/16 15:56 Glucose 115 mg/dL (70-105) H 11/29/16 15:56 Calcium 9.1 mg/dL (8.6-10.3) 11/29/16 15:56 Total Bilirubin 0.6 mg/dL (0.3-1.0) 11/29/16 15:56 AST 21 U/L (13-39) 11/29/16 15:56 ALT 21 U/L (7-52) 11/29/16 15:56 Alkaline Phosphatase 58 U/L (34-104) 11/29/16 15:56 Total Protein 7.0 gm/dL (6.0-8.3) 11/29/16 15:56 Albumin 4.3 gm/dL (4.2-5.5) 11/29/16 15:56 Globulin 2.7 gm/dL 11/29/16 15:56 Albumin/Globulin Ratio 1.6 (1.0-1.8) 11/29/16 15:56 Triglycerides 193 mg/dL (<150) H 11/29/16 15:56 Cholesterol 130 mg/dL (<200) 11/29/16 15:56 LDL Cholesterol Direct 65 mg/dL (75-193) L 11/29/16 15:56 HDL Cholesterol 43 mg/dL (23-92) 11/29/16 15:56 TSH 1.13 uIU/ml (0.34-5.60) 11/29/16 15:56 Salicylates < 25.0 mg/L (30.0-100.0) L 11/29/16 15:56 Acetaminophen < 10.0 ug/mL (10.0-30.0) L 11/29/16 15:56 Ethyl Alcohol < 10 mg/dL (0-10) 11/29/16 15:56 RPR NONREACTIVE (NONREACTIVE) 11/29/16 15:56 - Physical Exam Vitals and I&O: Vital Signs Temp 97.7 F 12/07/16 06:40 Pulse 66 12/07/16 06:40 Resp 18 12/07/16 06:40 BP 110/68 12/07/16 06:40 Pulse Ox 96 12/07/16 06:40 Intake & Output 12/06/16 12/07/16 12/07/16 18:59 06:59 18:59 Intake Total 1200 120 Balance 1200 120 Weight (lbs) 66.134 kg Intake: Oral 1200 120 Other: # Voids 3 # Bowel Movements 1 Active Medications: Current Medications Acetaminophen (Tylenol) 650 mg PO Q4HR PRN PRN Reason: Pain (Mild) Stop: 01/28/17 20:56 Buspirone HCl (Buspar) 10 mg PO BID [facility] PRN Reason: Protocol Stop: 01/29/17 08:59 Last Admin: 12/07/16 08:21 Dose: 10 mg Docusate Sodium (Colace) 100 mg PO DAILY [facility] Stop: 01/29/17 08:59 Last Admin: 12/07/16 08:21 Dose: 100 mg Lorazepam (Ativan) 1 mg PO Q6H PRN; Protocol PRN Reason: Anxiety/Agitation Stop: 01/28/17 20:42 Last Admin: 12/03/16 23:02 Dose: 1 mg Magnesium Hydroxide (Milk Of Magnesia) 30 ml PO HS PRN PRN Reason: Constipation Stop: 01/28/17 20:42 Quetiapine Fumarate (Seroquel) 50 mg PO BID [facility] PRN Reason: Protocol Stop: 02/01/17 16:59 Last Admin: 12/07/16 08:21 Dose: 50 mg Zolpidem Tartrate (Ambien) 5 mg PO HS [facility] Stop: 01/28/17 20:59 Last Admin: 12/06/16 21:04 Dose: 5 mg General: No acute distress HEENT: Atraumatic Cardiovascular: Regular rate, Normal S1 Assessment/Plan - Problem List Patient Problems: All Active Problems H/O diabetes mellitus (Acute) Z86.39 H/O: HTN (hypertension) (Acute) Z86.79 severe agitation (Acute) - Plan Plan: cpm Nutritional Asmnt/Malnutr-PDOC - Dietary Evaluation Malnutrition Findings (Please click <Entered> for more info): Nutritional Asmnt/Malnutrition Start: 12/06/16 19: 17 Text: Status: Complete Freq: Document 12/06/16 19:17 GSUN (Rec: 10/18/17 19:29 [email or web address] [email or web address]) Nutritional Asmnt/Malnutrition Patient General Information Nutritional Screening Moderate Risk Screening Diagnosis Severe agitation, r/o hx DM Pertinent Medical Hx/Surgical Hx HTN Subjective Information 75 year old male. Pt was awake and appeared guarded during visit, only provided yes and no responses, did not provide much nutrition hx. No severe muscle fat wasting noted, mild wasting to chest. CBW 145.8lb via bedscale, questionable difference with EMR weight, pt did not answer to UBW. Avg PO intake 75% of meals since adm , meeting nutritinoal needs. Pt is edentulous. No nutritional concerns per nursing staff. Current Diet Order/ Nutrition Support Pureed, large portions, KYLE Pertinent Medications Colace, MOM, Seroquel Pertinent Labs 11/29: BUN 26H, glucose 115H, triglycerides 193H Nutritional Hx/Data Height 1.73 m Height (Calculated Centimeters) 172.7 Current Weight (lbs) 66.134 kg Weight (Calculated Kilograms) 66.1 Weight (Calculated Grams) 99536.8 [place] Body Weight 154 Weight Status Approriate GI Symptoms Food Allergies No Skin Integrity/Comment: Dionte 16. Skin intact. Estimated Nutritional Goals BEE in Kcals: Using Current wt Calories/Kcals/Kg CBW 145.8lb/66.3kg Kcals Calculated 1658-1989kcal (25-30kcal/kg) Protein: Using Current wt Protein Calculated 66g (1g/kg) Fluid: ml 1658-1989ml (1ml/kcal) Nutritional Problem 1. Problem Problem No nutritinoal problem at this time. Intervention/Recommendation Comments 1. Remove "large portion" from diet order, as pureed diet provides to meet >200% of lower end estimated kcal needs . Expected Outcomes/Goals Expected Outcomes/Goals 1. PO intake continue to meet at least 75% of estimated nutritional needs.
--- NOTE | 2016-12-07 23:24 | Progress Notes ---
DATE: 12/07/2016 SUBJECTIVE: Chart reviewed and the patient interviewed. Also, discussed the patient's condition with the staff and reviewed records and labs. The patient still has episodes of shouting and yelling for no apparent reason. The patient also is still suspicious and is still ____ paranoid and in angry mood. He also is still having severe mood swings and severe anxiety. Also, at times, the patient is whispering and talking to himself with the words that are difficult to understand. Also, still gets agitated when the staff tries to redirect him. Otherwise, the patient continued to comply with taking his Seroquel with no side effects. ASSESSMENT: The patient is still psychotic and agitated. TREATMENT PLAN: We will continue monitoring his behavior and his condition closely and will continue to work on his adjusting psychotropic medications and his psychosis. JOB# [id number]
[2016-12-08] MEDS ORDERED: Haloperidol Lactate 5 mg/mL 1mL Vial ONE (08:29)
[2016-12-08] MEDS ORDERED: Haloperidol Lactate 5 mg/mL 1mL Vial IM ONE (08:29)
--- NOTE | 2016-12-08 19:55 | Internal Medicine Prog Note ---
Internal Medicine Subjective - Subjective Service Date: 12/08/16 Patient is:: awake Per staff patient has:: no adverse event Internal Medicine Objective - Results Result Diagrams: 11/29/16 15:56 11/29/16 15:56 Recent Labs: Laboratory Last Values WBC 9.3 Th/cmm (4.8-10.8) 11/29/16 15:56 RBC 5.08 Mil/cmm (3.80-5.80) 11/29/16 15:56 Hgb 15.7 gm/dL (12-16) 11/29/16 15:56 Hct 45.8 % (41.0-60) 11/29/16 15:56 MCV 90.2 fl (80-99) 11/29/16 15:56 MCH 30.9 pg (27.0-31.0) 11/29/16 15:56 MCHC Differential 34.2 pg (28.0-36.0) 11/29/16 15:56 RDW 12.9 % (11.5-20.0) 11/29/16 15:56 Plt Count 234 Th/cmm (150-400) 11/29/16 15:56 MPV 8.6 fl 11/29/16 15:56 Neutrophils % 54.5 % (40.0-80.0) 11/29/16 15:56 Lymphocytes % 35.8 % (20.0-50.0) 11/29/16 15:56 Monocytes % 7.0 % (2.0-10.0) 11/29/16 15:56 Eosinophils % 2.0 % (0.0-5.0) 11/29/16 15:56 Basophils % 0.7 % (0.0-2.0) 11/29/16 15:56 Sodium 138 mEq/L (136-145) 11/29/16 15:56 Potassium 4.0 mEq/L (3.5-5.1) 11/29/16 15:56 Chloride 106 mEq/L (98-107) 11/29/16 15:56 Carbon Dioxide 23.4 mEq/L (21.0-31.0) 11/29/16 15:56 Anion Gap 12.6 (7.0-16.0) 11/29/16 15:56 BUN 26 mg/dL (7-25) H 11/29/16 15:56 Creatinine 0.9 mg/dL (0.7-1.3) 11/29/16 15:56 Est GFR ( Amer) TNP 11/29/16 15:56 Est GFR (Non-Af Amer) TNP 11/29/16 15:56 BUN/Creatinine Ratio 28.9 11/29/16 15:56 Glucose 115 mg/dL (70-105) H 11/29/16 15:56 Calcium 9.1 mg/dL (8.6-10.3) 11/29/16 15:56 Total Bilirubin 0.6 mg/dL (0.3-1.0) 11/29/16 15:56 AST 21 U/L (13-39) 11/29/16 15:56 ALT 21 U/L (7-52) 11/29/16 15:56 Alkaline Phosphatase 58 U/L (34-104) 11/29/16 15:56 Total Protein 7.0 gm/dL (6.0-8.3) 11/29/16 15:56 Albumin 4.3 gm/dL (4.2-5.5) 11/29/16 15:56 Globulin 2.7 gm/dL 11/29/16 15:56 Albumin/Globulin Ratio 1.6 (1.0-1.8) 11/29/16 15:56 Triglycerides 193 mg/dL (<150) H 11/29/16 15:56 Cholesterol 130 mg/dL (<200) 11/29/16 15:56 LDL Cholesterol Direct 65 mg/dL (75-193) L 11/29/16 15:56 HDL Cholesterol 43 mg/dL (23-92) 11/29/16 15:56 TSH 1.13 uIU/ml (0.34-5.60) 11/29/16 15:56 Salicylates < 25.0 mg/L (30.0-100.0) L 11/29/16 15:56 Acetaminophen < 10.0 ug/mL (10.0-30.0) L 11/29/16 15:56 Ethyl Alcohol < 10 mg/dL (0-10) 11/29/16 15:56 RPR NONREACTIVE (NONREACTIVE) 11/29/16 15:56 - Physical Exam Vitals and I&O: Vital Signs Temp 97.6 F 12/08/16 16:07 Pulse 96 12/08/16 16:07 Resp 20 12/08/16 16:07 BP 109/70 12/08/16 16:07 Pulse Ox 98 12/08/16 16:07 Intake & Output 12/08/16 12/08/16 12/09/16 06:59 18:59 06:59 Intake Total 800 Balance 800 Intake: Oral 800 Other: # Voids 4 # Bowel Movements 1 Active Medications: Current Medications Acetaminophen (Tylenol) 650 mg PO Q4HR PRN PRN Reason: Pain (Mild) Stop: 01/28/17 20:56 Buspirone HCl (Buspar) 10 mg PO BID ELVA PRN Reason: Protocol Stop: 01/29/17 08:59 Last Admin: 12/08/16 16:51 Dose: 10 mg Docusate Sodium (Colace) 100 mg PO DAILY [facility] Stop: 01/29/17 08:59 Last Admin: 12/08/16 08:08 Dose: 100 mg Lorazepam (Ativan) 1 mg PO Q6H PRN; Protocol PRN Reason: Anxiety/Agitation Stop: 01/28/17 20:42 Last Admin: 12/08/16 06:59 Dose: 1 mg Magnesium Hydroxide (Milk Of Magnesia) 30 ml PO HS PRN PRN Reason: Constipation Stop: 01/28/17 20:42 Quetiapine Fumarate (Seroquel) 50 mg PO BID [facility] PRN Reason: Protocol Stop: 02/01/17 16:59 Last Admin: 12/08/16 16:51 Dose: 50 mg Zolpidem Tartrate (Ambien) 5 mg PO HS [facility] Stop: 01/28/17 20:59 Last Admin: 12/07/16 21:36 Dose: 5 mg General: alert HEENT: NC/AT, PERRLA Neck: Supple Lungs: CTAB Cardiovascular: RRR Abdomen: soft, non-tender, non-distended, positive bowel sound Extremities: excoriation Internal Medicine Assmt/Plan - Assessment Assessment: SEVERE AGITATION R/O DM HTN - Plan Plan: fall precautions continue current plan of care Nutritional Asmnt/Malnutr-PDOC - Dietary Evaluation Malnutrition Findings (Please click <Entered> for more info): Nutritional Asmnt/Malnutrition Start: 12/06/16 19: 17 Text: Status: Complete Freq: Document 12/06/16 19:17 BECCA (Rec: 12/06/16 19:29 GSUN [email or web address]) Nutritional Asmnt/Malnutrition Patient General Information Nutritional Screening Moderate Risk Screening Diagnosis Severe agitation, r/o hx DM Pertinent Medical Hx/Surgical Hx HTN Subjective Information 75 year old male. Pt was awake and appeared guarded during visit, only provided yes and no responses, did not provide much nutrition hx. No severe muscle fat wasting noted, mild wasting to chest. CBW 145.8lb via bedscale, questionable difference with EMR weight, pt did not answer to UBW. Avg PO intake 75% of meals since adm , meeting nutritinoal needs. Pt is edentulous. No nutritional concerns per nursing staff. Current Diet Order/ Nutrition Support Pureed, large portions, KYLE Pertinent Medications Colace, MOM, Seroquel Pertinent Labs 11/29: BUN 26H, glucose 115H, triglycerides 193H Nutritional Hx/Data Height 5 ft 8 in Height (Calculated Centimeters) 172.7 Current Weight (lbs) 145 lb 12.8 oz Weight (Calculated Kilograms) 66.1 Weight (Calculated Grams) 28941.8 [place] Body Weight 154 Weight Status Approriate GI Symptoms Food Allergies No Skin Integrity/Comment: Dionte 16. Skin intact. Estimated Nutritional Goals BEE in Kcals: Using Current wt Calories/Kcals/Kg CBW 145.8lb/66.3kg Kcals Calculated 1658-1989kcal (25-30kcal/kg) Protein: Using Current wt Protein Calculated 66g (1g/kg) Fluid: ml 1658-1989ml (1ml/kcal) Nutritional Problem 1. Problem Problem No nutritinoal problem at this time. Intervention/Recommendation Comments 1. Remove "large portion" from diet order, as pureed diet provides to meet >200% of lower end estimated kcal needs . Expected Outcomes/Goals Expected Outcomes/Goals 1. PO intake continue to meet at least 75% of estimated nutritional needs.
--- NOTE | 2016-12-09 03:16 | Progress Notes ---
DATE: 12/08/2016 SUBJECTIVE: Chart reviewed and the patient interviewed. Also discussed the patient's condition with the staff and reviewed records and labs. The patient is still extremely agitated and is still in irritable mood. The patient also is still angry and aggressive. Also he is still fighting with peers and with staff and earlier today he was extremely aggressive to the point that we had to be given Haldol, Ativan, and Benadryl injection on an emergency bases. Otherwise, the patient is compliant with taking his medications with no side effects of medications. ASSESSMENT: The patient is still psychotic and is still aggressive. TREATMENT PLAN: We will continue monitoring his behavior and continue to work on behavioral modification and adjusting psychotropic medications and working on his poor impulse control. JOB# [id number]
--- NOTE | 2016-12-09 10:48 | Progress Notes ---
DATE: SUBJECTIVE: The patient was seen, chart reviewed, discussed with staff. The patient is currently in the hospital noted to be restless, remains anxious, angry, irritable, paranoid at times, disorganized. The patient's symptoms are ongoing, still in irritable mood, agitated, and aggressive, fighting with peers with staff. The patient has been given emergency medications in the hospital. ASSESSMENT: The patient remains psychotic, still aggressive, not safe for a lower level of care. PLAN: We will continue to monitor. Given his ongoing symptoms, he is not safe for discharge. [facility]# [id number]
--- NOTE | 2016-12-09 20:19 | Progress Notes ---
DATE: 12/09/2016 SUBJECTIVE: The patient was seen in her room, lying in the bed. The patient is awake, alert, oriented x 1-2 with episodes of confusion. The patient is a poor historian due to medical condition. According to staff, the patient still has some episodes of agitation, otherwise the patient appears to be comfortable, in no acute distress. OBJECTIVE: VITAL SIGNS: Temperature of 98.5, heart rate of 97, blood pressure 142/66, respirations 20, 94% on room air. HEENT: Head is atraumatic and normocephalic. Eyes: Bilateral conjunctivae are clear. Bilateral pupils are equally round and reactive. NECK: Supple. No JVD. CARDIOVASCULAR: S1 and S2 without murmur. PULMONARY: Clear to auscultation. GASTROINTESTINAL: Soft and nontender without guarding. Positive bowel sounds. MUSCULOSKELETAL: No clubbing, no cyanosis noted. ASSESSMENT: 1. Psychosis. 2. Anxiety. 3. Osteoarthritis. 4. Hypertension. 5. History of diabetes mellitus. PLAN: We will continue to keep the patient in the Psychiatric Unit. We will follow up with the psychiatrist to monitor the patient's behavior. Treatment and transfer were discussed with the patient's nurse. Treatment and transfer were discussed with Dr. Rolle. JOB# [id number]
--- NOTE | 2016-12-10 10:06 | General Progress Note ---
Subjective - Review of Systems Events since last encounter: no distress patient awake alert patient confused Objective - Results Result Diagrams: 11/29/16 15:56 11/29/16 15:56 Recent Labs: Laboratory Last Values WBC 9.3 Th/cmm (4.8-10.8) 11/29/16 15:56 RBC 5.08 Mil/cmm (3.80-5.80) 11/29/16 15:56 Hgb 15.7 gm/dL (12-16) 11/29/16 15:56 Hct 45.8 % (41.0-60) 11/29/16 15:56 MCV 90.2 fl (80-99) 11/29/16 15:56 MCH 30.9 pg (27.0-31.0) 11/29/16 15:56 MCHC Differential 34.2 pg (28.0-36.0) 11/29/16 15:56 RDW 12.9 % (11.5-20.0) 11/29/16 15:56 Plt Count 234 Th/cmm (150-400) 11/29/16 15:56 MPV 8.6 fl 11/29/16 15:56 Neutrophils % 54.5 % (40.0-80.0) 11/29/16 15:56 Lymphocytes % 35.8 % (20.0-50.0) 11/29/16 15:56 Monocytes % 7.0 % (2.0-10.0) 11/29/16 15:56 Eosinophils % 2.0 % (0.0-5.0) 11/29/16 15:56 Basophils % 0.7 % (0.0-2.0) 11/29/16 15:56 Sodium 138 mEq/L (136-145) 11/29/16 15:56 Potassium 4.0 mEq/L (3.5-5.1) 11/29/16 15:56 Chloride 106 mEq/L (98-107) 11/29/16 15:56 Carbon Dioxide 23.4 mEq/L (21.0-31.0) 11/29/16 15:56 Anion Gap 12.6 (7.0-16.0) 11/29/16 15:56 BUN 26 mg/dL (7-25) H 11/29/16 15:56 Creatinine 0.9 mg/dL (0.7-1.3) 11/29/16 15:56 Est GFR ( Amer) TNP 11/29/16 15:56 Est GFR (Non-Af Amer) TNP 11/29/16 15:56 BUN/Creatinine Ratio 28.9 11/29/16 15:56 Glucose 115 mg/dL (70-105) H 11/29/16 15:56 Calcium 9.1 mg/dL (8.6-10.3) 11/29/16 15:56 Total Bilirubin 0.6 mg/dL (0.3-1.0) 11/29/16 15:56 AST 21 U/L (13-39) 11/29/16 15:56 ALT 21 U/L (7-52) 11/29/16 15:56 Alkaline Phosphatase 58 U/L (34-104) 11/29/16 15:56 Total Protein 7.0 gm/dL (6.0-8.3) 11/29/16 15:56 Albumin 4.3 gm/dL (4.2-5.5) 11/29/16 15:56 Globulin 2.7 gm/dL 11/29/16 15:56 Albumin/Globulin Ratio 1.6 (1.0-1.8) 11/29/16 15:56 Triglycerides 193 mg/dL (<150) H 11/29/16 15:56 Cholesterol 130 mg/dL (<200) 11/29/16 15:56 LDL Cholesterol Direct 65 mg/dL (75-193) L 11/29/16 15:56 HDL Cholesterol 43 mg/dL (23-92) 11/29/16 15:56 TSH 1.13 uIU/ml (0.34-5.60) 11/29/16 15:56 Salicylates < 25.0 mg/L (30.0-100.0) L 11/29/16 15:56 Acetaminophen < 10.0 ug/mL (10.0-30.0) L 11/29/16 15:56 Ethyl Alcohol < 10 mg/dL (0-10) 11/29/16 15:56 RPR NONREACTIVE (NONREACTIVE) 11/29/16 15:56 - Physical Exam Vitals and I&O: Vital Signs Temp 97.6 F 12/10/16 06:18 Pulse 70 12/10/16 06:18 Resp 20 12/10/16 06:18 BP 101/69 12/10/16 06:18 Pulse Ox 100 12/10/16 06:18 Intake & Output 12/09/16 12/10/16 12/10/16 18:59 06:59 18:59 Intake Total 800 Balance 800 Intake: Oral 800 Other: # Voids 3 # Bowel Movements 0 Active Medications: Current Medications Acetaminophen (Tylenol) 650 mg PO Q4HR PRN PRN Reason: Pain (Mild) Stop: 01/28/17 20:56 Buspirone HCl (Buspar) 10 mg PO BID [facility] PRN Reason: Protocol Stop: 01/29/17 08:59 Last Admin: 12/10/16 08:47 Dose: 10 mg Docusate Sodium (Colace) 100 mg PO DAILY [facility] Stop: 01/29/17 08:59 Last Admin: 12/10/16 08:47 Dose: 100 mg Lorazepam (Ativan) 1 mg PO Q6H PRN; Protocol PRN Reason: Anxiety/Agitation Stop: 01/28/17 20:42 Last Admin: 12/09/16 02:07 Dose: 1 mg Magnesium Hydroxide (Milk Of Magnesia) 30 ml PO HS PRN PRN Reason: Constipation Stop: 01/28/17 20:42 Quetiapine Fumarate (Seroquel) 50 mg PO BID [facility] PRN Reason: Protocol Stop: 02/01/17 16:59 Last Admin: 12/10/16 08:47 Dose: 50 mg Quetiapine Fumarate (Seroquel) 50 mg PO HS [facility] PRN Reason: Protocol Stop: 02/07/17 20:59 Last Admin: 12/09/16 21:05 Dose: 50 mg Zolpidem Tartrate (Ambien) 5 mg PO HS [facility] Stop: 01/28/17 20:59 Last Admin: 12/09/16 21:05 Dose: 5 mg General: No acute distress HEENT: Atraumatic Cardiovascular: Regular rate, Normal S1 Assessment/Plan - Problem List Patient Problems: All Active Problems H/O diabetes mellitus (Acute) Z86.39 H/O: HTN (hypertension) (Acute) Z86.79 severe agitation (Acute) - Plan Plan: cpm Nutritional Asmnt/Malnutr-PDOC - Dietary Evaluation Malnutrition Findings (Please click <Entered> for more info): Nutritional Asmnt/Malnutrition Start: 12/06/16 19: 17 Text: Status: Complete Freq: Document 12/06/16 19:17 GSMARY GRACE (Rec: 12/06/16 19:29 GSMARY GRACE [email or web address]) Nutritional Asmnt/Malnutrition Patient General Information Nutritional Screening Moderate Risk Screening Diagnosis Severe agitation, r/o hx DM Pertinent Medical Hx/Surgical Hx HTN Subjective Information 75 year old male. Pt was awake and appeared guarded during visit, only provided yes and no responses, did not provide much nutrition hx. No severe muscle fat wasting noted, mild wasting to chest. CBW 145.8lb via bedscale, questionable difference with EMR weight, pt did not answer to UBW. Avg PO intake 75% of meals since adm , meeting nutritinoal needs. Pt is edentulous. No nutritional concerns per nursing staff. Current Diet Order/ Nutrition Support Pureed, large portions, KYLE Pertinent Medications Colace, MOM, Seroquel Pertinent Labs 11/29: BUN 26H, glucose 115H, triglycerides 193H Nutritional Hx/Data Height 1.73 m Height (Calculated Centimeters) 172.7 Current Weight (lbs) 66.134 kg Weight (Calculated Kilograms) 66.1 Weight (Calculated Grams) 67270.8 [place] Body Weight 154 Weight Status Approriate GI Symptoms Food Allergies No Skin Integrity/Comment: Dionte 16. Skin intact. Estimated Nutritional Goals BEE in Kcals: Using Current wt Calories/Kcals/Kg CBW 145.8lb/66.3kg Kcals Calculated 1658-1989kcal (25-30kcal/kg) Protein: Using Current wt Protein Calculated 66g (1g/kg) Fluid: ml 1658-1989ml (1ml/kcal) Nutritional Problem 1. Problem Problem No nutritinoal problem at this time. Intervention/Recommendation Comments 1. Remove "large portion" from diet order, as pureed diet provides to meet >200% of lower end estimated kcal needs . Expected Outcomes/Goals Expected Outcomes/Goals 1. PO intake continue to meet at least 75% of estimated nutritional needs.
--- NOTE | 2016-12-10 12:05 | Progress Notes ---
DATE: SUBJECTIVE: The patient seen, chart reviewed, discussed with staff. The patient is in the hospital due to increased agitation and aggressive behaviors, angry behaviors, unruly behaviors, could not be cared for at a lower level of care. The patient got emergency intramuscular medications within the past 24 hours, disruptive, confused, disoriented, agitated, yelling constantly. The patient slept fairly well last night. Medications were noted. No noted side effects. ASSESSMENT: The patient remains symptomatic, impulsive, got emergency medications. PLAN: We will continue to monitor. Given ongoing symptoms, he is not safe for discharge. JOB# [id number]
[2016-12-11 08:22] LABS: ALB/GLOB RATIO 1.5 (1.0-1.8); ALKALINE PHOSPHATASE 55 U/L (34-104); ANION GAP 7.8 (7.0-16.0); BUN - UREA NITROGEN 21 mg/dL (7-25); CALCIUM SERUM 8.8 mg/dL (8.6-10.3); CHLORIDE 103 mEq/L (98-107); GLUCOSE 91 mg/dL (70-105); POTASSIUM SERUM 3.8 mEq/L (3.5-5.1); SGOT 19 U/L (13-39); SGPT/ALT 17 U/L (7-52); SODIUM SERUM 134 mEq/L (136-145)
--- NOTE | 2016-12-11 21:59 | Internal Medicine Prog Note ---
Internal Medicine Subjective - Subjective Service Date: 12/11/16 Patient is:: awake Per staff patient has:: no adverse event Internal Medicine Objective - Results Result Diagrams: 11/29/16 15:56 12/11/16 07:40 Recent Labs: Laboratory Last Values WBC 9.3 Th/cmm (4.8-10.8) 11/29/16 15:56 RBC 5.08 Mil/cmm (3.80-5.80) 11/29/16 15:56 Hgb 15.7 gm/dL (12-16) 11/29/16 15:56 Hct 45.8 % (41.0-60) 11/29/16 15:56 MCV 90.2 fl (80-99) 11/29/16 15:56 MCH 30.9 pg (27.0-31.0) 11/29/16 15:56 MCHC Differential 34.2 pg (28.0-36.0) 11/29/16 15:56 RDW 12.9 % (11.5-20.0) 11/29/16 15:56 Plt Count 234 Th/cmm (150-400) 11/29/16 15:56 MPV 8.6 fl 11/29/16 15:56 Neutrophils % 54.5 % (40.0-80.0) 11/29/16 15:56 Lymphocytes % 35.8 % (20.0-50.0) 11/29/16 15:56 Monocytes % 7.0 % (2.0-10.0) 11/29/16 15:56 Eosinophils % 2.0 % (0.0-5.0) 11/29/16 15:56 Basophils % 0.7 % (0.0-2.0) 11/29/16 15:56 Sodium 134 mEq/L (136-145) L 12/11/16 07:40 Potassium 3.8 mEq/L (3.5-5.1) 12/11/16 07:40 Chloride 103 mEq/L (98-107) 12/11/16 07:40 Carbon Dioxide 27.0 mEq/L (21.0-31.0) 12/11/16 07:40 Anion Gap 7.8 (7.0-16.0) 12/11/16 07:40 BUN 21 mg/dL (7-25) 12/11/16 07:40 Creatinine 1.0 mg/dL (0.7-1.3) 12/11/16 07:40 Est GFR ( Amer) TNP 12/11/16 07:40 Est GFR (Non-Af Amer) TNP 12/11/16 07:40 BUN/Creatinine Ratio 21.0 12/11/16 07:40 Glucose 91 mg/dL (70-105) 12/11/16 07:40 Calcium 8.8 mg/dL (8.6-10.3) 12/11/16 07:40 Total Bilirubin 1.0 mg/dL (0.3-1.0) 12/11/16 07:40 AST 19 U/L (13-39) 12/11/16 07:40 ALT 17 U/L (7-52) 12/11/16 07:40 Alkaline Phosphatase 55 U/L (34-104) 12/11/16 07:40 Total Protein 6.0 gm/dL (6.0-8.3) 12/11/16 07:40 Albumin 3.6 gm/dL (4.2-5.5) L 12/11/16 07:40 Globulin 2.4 gm/dL 12/11/16 07:40 Albumin/Globulin Ratio 1.5 (1.0-1.8) 12/11/16 07:40 Triglycerides 193 mg/dL (<150) H 11/29/16 15:56 Cholesterol 130 mg/dL (<200) 11/29/16 15:56 LDL Cholesterol Direct 65 mg/dL (75-193) L 11/29/16 15:56 HDL Cholesterol 43 mg/dL (23-92) 11/29/16 15:56 TSH 1.13 uIU/ml (0.34-5.60) 11/29/16 15:56 Salicylates < 25.0 mg/L (30.0-100.0) L 11/29/16 15:56 Acetaminophen < 10.0 ug/mL (10.0-30.0) L 11/29/16 15:56 Ethyl Alcohol < 10 mg/dL (0-10) 11/29/16 15:56 RPR NONREACTIVE (NONREACTIVE) 11/29/16 15:56 - Physical Exam Vitals and I&O: Vital Signs Temp 97.8 F 12/11/16 20:25 Pulse 69 12/11/16 20:25 Resp 18 12/11/16 20:25 BP 104/63 12/11/16 20:25 Pulse Ox 96 12/11/16 20:25 Intake & Output 12/11/16 12/11/16 12/12/16 06:59 18:59 06:59 Intake Total 120 600 120 Balance 120 600 120 Intake: Oral 120 600 120 Other: # Voids 3 3 1 # Bowel Movements 0 1 Active Medications: Current Medications Acetaminophen (Tylenol) 650 mg PO Q4HR PRN PRN Reason: Pain (Mild) Stop: 01/28/17 20:56 Buspirone HCl (Buspar) 10 mg PO BID [facility] PRN Reason: Protocol Stop: 01/29/17 08:59 Last Admin: 12/11/16 17:48 Dose: 10 mg Docusate Sodium (Colace) 100 mg PO DAILY [facility] Stop: 01/29/17 08:59 Last Admin: 12/11/16 10:09 Dose: Not Given Lorazepam (Ativan) 1 mg PO Q6H PRN; Protocol PRN Reason: Anxiety/Agitation Stop: 01/28/17 20:42 Last Admin: 12/09/16 02:07 Dose: 1 mg Magnesium Hydroxide (Milk Of Magnesia) 30 ml PO HS PRN PRN Reason: Constipation Stop: 01/28/17 20:42 Quetiapine Fumarate (Seroquel) 50 mg PO BID [facility] PRN Reason: Protocol Stop: 02/01/17 16:59 Last Admin: 12/11/16 17:47 Dose: 50 mg Quetiapine Fumarate (Seroquel) 50 mg PO HS [facility] PRN Reason: Protocol Stop: 02/07/17 20:59 Last Admin: 12/11/16 20:45 Dose: 50 mg Zolpidem Tartrate (Ambien) 5 mg PO HS [facility] Stop: 01/28/17 20:59 Last Admin: 12/11/16 20:45 Dose: 5 mg General: alert HEENT: NC/AT, PERRLA Neck: Supple Lungs: CTAB Cardiovascular: RRR Abdomen: soft, non-tender, non-distended, positive bowel sound Extremities: excoriation Internal Medicine Assmt/Plan - Assessment Assessment: H/O diabetes mellitus (Acute) Z86.39 H/O: HTN (hypertension) (Acute) Z86.79 severe agitation (Acute) - Plan Plan: cpm Nutritional Asmnt/Malnutr-PDOC - Dietary Evaluation Malnutrition Findings (Please click <Entered> for more info): Nutritional Asmnt/Malnutrition Start: 12/06/16 19: 17 Text: Status: Complete Freq: Document 12/06/16 19:17 GSUN (Rec: 12/06/16 19:29 GSUN [email or web address]) Nutritional Asmnt/Malnutrition Patient General Information Nutritional Screening Moderate Risk Screening Diagnosis Severe agitation, r/o hx DM Pertinent Medical Hx/Surgical Hx HTN Subjective Information 75 year old male. Pt was awake and appeared guarded during visit, only provided yes and no responses, did not provide much nutrition hx. No severe muscle fat wasting noted, mild wasting to chest. CBW 145.8lb via bedscale, questionable difference with EMR weight, pt did not answer to UBW. Avg PO intake 75% of meals since adm , meeting nutritinoal needs. Pt is edentulous. No nutritional concerns per nursing staff. Current Diet Order/ Nutrition Support Pureed, large portions, KYLE Pertinent Medications Colace, MOM, Seroquel Pertinent Labs 11/29: BUN 26H, glucose 115H, triglycerides 193H Nutritional Hx/Data Height 1.73 m Height (Calculated Centimeters) 172.7 Current Weight (lbs) 66.134 kg Weight (Calculated Kilograms) 66.1 Weight (Calculated Grams) 39027.8 [place] Body Weight 154 Weight Status Approriate GI Symptoms Food Allergies No Skin Integrity/Comment: Dionte 16. Skin intact. Estimated Nutritional Goals BEE in Kcals: Using Current wt Calories/Kcals/Kg CBW 145.8lb/66.3kg Kcals Calculated 1658-1989kcal (25-30kcal/kg) Protein: Using Current wt Protein Calculated 66g (1g/kg) Fluid: ml 1658-1989ml (1ml/kcal) Nutritional Problem 1. Problem Problem No nutritinoal problem at this time. Intervention/Recommendation Comments 1. Remove "large portion" from diet order, as pureed diet provides to meet >200% of lower end estimated kcal needs . Expected Outcomes/Goals Expected Outcomes/Goals 1. PO intake continue to meet at least 75% of estimated nutritional needs.
--- NOTE | 2016-12-12 01:36 | Progress Notes ---
DATE: 12/11/2016 Case was discussed with staff of the patient, reviewed records. Covering for Dr. Rodriguez. This is a 75-year-old male who was in 11/29/2016, transferred from a nursing facility because of increased agitation and aggressive behavior. He has been in angry, irritable, restless, unable to follow staff directions and speaking staff help with translation. He is still unpredictable, impulsive, confused and redirection. He is on BuSpar 10 mg twice a day, Seroquel 50 mg twice a day and 50 mg at bedtime with no side effects, no sedation, no nausea and no extrapyramidal symptoms. We will continue to work with the patient in group therapy, milieu therapy, adjusting medication as needed. JOB# [id number]
--- NOTE | 2016-12-12 08:43 | General Progress Note ---
Subjective - Review of Systems Events since last encounter: patient awake aggressive , confused Objective - Results Result Diagrams: 11/29/16 15:56 12/11/16 07:40 Recent Labs: Laboratory Last Values WBC 9.3 Th/cmm (4.8-10.8) 11/29/16 15:56 RBC 5.08 Mil/cmm (3.80-5.80) 11/29/16 15:56 Hgb 15.7 gm/dL (12-16) 11/29/16 15:56 Hct 45.8 % (41.0-60) 11/29/16 15:56 MCV 90.2 fl (80-99) 11/29/16 15:56 MCH 30.9 pg (27.0-31.0) 11/29/16 15:56 MCHC Differential 34.2 pg (28.0-36.0) 11/29/16 15:56 RDW 12.9 % (11.5-20.0) 11/29/16 15:56 Plt Count 234 Th/cmm (150-400) 11/29/16 15:56 MPV 8.6 fl 11/29/16 15:56 Neutrophils % 54.5 % (40.0-80.0) 11/29/16 15:56 Lymphocytes % 35.8 % (20.0-50.0) 11/29/16 15:56 Monocytes % 7.0 % (2.0-10.0) 11/29/16 15:56 Eosinophils % 2.0 % (0.0-5.0) 11/29/16 15:56 Basophils % 0.7 % (0.0-2.0) 11/29/16 15:56 Sodium 134 mEq/L (136-145) L 12/11/16 07:40 Potassium 3.8 mEq/L (3.5-5.1) 12/11/16 07:40 Chloride 103 mEq/L (98-107) 12/11/16 07:40 Carbon Dioxide 27.0 mEq/L (21.0-31.0) 12/11/16 07:40 Anion Gap 7.8 (7.0-16.0) 12/11/16 07:40 BUN 21 mg/dL (7-25) 12/11/16 07:40 Creatinine 1.0 mg/dL (0.7-1.3) 12/11/16 07:40 Est GFR ( Amer) TNP 12/11/16 07:40 Est GFR (Non-Af Amer) TNP 12/11/16 07:40 BUN/Creatinine Ratio 21.0 12/11/16 07:40 Glucose 91 mg/dL (70-105) 12/11/16 07:40 Calcium 8.8 mg/dL (8.6-10.3) 12/11/16 07:40 Total Bilirubin 1.0 mg/dL (0.3-1.0) 12/11/16 07:40 AST 19 U/L (13-39) 12/11/16 07:40 ALT 17 U/L (7-52) 12/11/16 07:40 Alkaline Phosphatase 55 U/L (34-104) 12/11/16 07:40 Total Protein 6.0 gm/dL (6.0-8.3) 12/11/16 07:40 Albumin 3.6 gm/dL (4.2-5.5) L 12/11/16 07:40 Globulin 2.4 gm/dL 12/11/16 07:40 Albumin/Globulin Ratio 1.5 (1.0-1.8) 12/11/16 07:40 Triglycerides 193 mg/dL (<150) H 11/29/16 15:56 Cholesterol 130 mg/dL (<200) 11/29/16 15:56 LDL Cholesterol Direct 65 mg/dL (75-193) L 11/29/16 15:56 HDL Cholesterol 43 mg/dL (23-92) 11/29/16 15:56 TSH 1.13 uIU/ml (0.34-5.60) 11/29/16 15:56 Salicylates < 25.0 mg/L (30.0-100.0) L 11/29/16 15:56 Acetaminophen < 10.0 ug/mL (10.0-30.0) L 11/29/16 15:56 Ethyl Alcohol < 10 mg/dL (0-10) 11/29/16 15:56 RPR NONREACTIVE (NONREACTIVE) 11/29/16 15:56 - Physical Exam Vitals and I&O: Vital Signs Temp 98.1 F 12/12/16 06:20 Pulse 63 12/12/16 06:20 Resp 18 12/12/16 06:20 BP 100/58 12/12/16 06:20 Pulse Ox 96 12/12/16 06:20 Intake & Output 12/11/16 12/12/16 12/12/16 18:59 06:59 18:59 Intake Total 600 180 Balance 600 180 Intake: Oral 600 180 Other: # Voids 3 2 # Bowel Movements 1 1 Active Medications: Current Medications Acetaminophen (Tylenol) 650 mg PO Q4HR PRN PRN Reason: Pain (Mild) Stop: 01/28/17 20:56 Buspirone HCl (Buspar) 10 mg PO BID ELVA PRN Reason: Protocol Stop: 01/29/17 08:59 Last Admin: 12/12/16 08:39 Dose: 10 mg Docusate Sodium (Colace) 100 mg PO DAILY [facility] Stop: 01/29/17 08:59 Last Admin: 12/12/16 08:39 Dose: 100 mg Lorazepam (Ativan) 1 mg PO Q6H PRN; Protocol PRN Reason: Anxiety/Agitation Stop: 01/28/17 20:42 Last Admin: 12/09/16 02:07 Dose: 1 mg Magnesium Hydroxide (Milk Of Magnesia) 30 ml PO HS PRN PRN Reason: Constipation Stop: 01/28/17 20:42 Quetiapine Fumarate (Seroquel) 50 mg PO BID ELVA PRN Reason: Protocol Stop: 02/01/17 16:59 Last Admin: 12/12/16 08:39 Dose: 50 mg Quetiapine Fumarate (Seroquel) 50 mg PO HS ELVA PRN Reason: Protocol Stop: 02/07/17 20:59 Last Admin: 12/11/16 20:45 Dose: 50 mg Zolpidem Tartrate (Ambien) 5 mg PO HS ELVA Stop: 01/28/17 20:59 Last Admin: 12/11/16 20:45 Dose: 5 mg General: No acute distress HEENT: Atraumatic Cardiovascular: Regular rate, Normal S1 Assessment/Plan - Problem List Patient Problems: All Active Problems H/O diabetes mellitus (Acute) Z86.39 H/O: HTN (hypertension) (Acute) Z86.79 severe agitation (Acute) - Assessment Assessment: H/O diabetes mellitus (Acute) Z86.39 H/O: HTN (hypertension) (Acute) Z86.79 severe agitation (Acute) - Plan Plan: cpm Nutritional Asmnt/Malnutr-PDOC - Dietary Evaluation Malnutrition Findings (Please click <Entered> for more info): Nutritional Asmnt/Malnutrition Start: 12/06/16 19: 17 Text: Status: Complete Freq: Document 12/06/16 19:17 GSUN (Rec: 12/06/16 19:29 [email or web address] [email or web address]) Nutritional Asmnt/Malnutrition Patient General Information Nutritional Screening Moderate Risk Screening Diagnosis Severe agitation, r/o hx DM Pertinent Medical Hx/Surgical Hx HTN Subjective Information 75 year old male. Pt was awake and appeared guarded during visit, only provided yes and no responses, did not provide much nutrition hx. No severe muscle fat wasting noted, mild wasting to chest. CBW 145.8lb via bedscale, questionable difference with EMR weight, pt did not answer to UBW. Avg PO intake 75% of meals since adm , meeting nutritinoal needs. Pt is edentulous. No nutritional concerns per nursing staff. Current Diet Order/ Nutrition Support Pureed, large portions, KYLE Pertinent Medications Colace, MOM, Seroquel Pertinent Labs 11/29: BUN 26H, glucose 115H, triglycerides 193H Nutritional Hx/Data Height 1.73 m Height (Calculated Centimeters) 172.7 Current Weight (lbs) 66.134 kg Weight (Calculated Kilograms) 66.1 Weight (Calculated Grams) 64678.8 [place] Body Weight 154 Weight Status Approriate GI Symptoms Food Allergies No Skin Integrity/Comment: Dionte 16. Skin intact. Estimated Nutritional Goals BEE in Kcals: Using Current wt Calories/Kcals/Kg CBW 145.8lb/66.3kg Kcals Calculated 1658-1989kcal (25-30kcal/kg) Protein: Using Current wt Protein Calculated 66g (1g/kg) Fluid: ml 1658-1989ml (1ml/kcal) Nutritional Problem 1. Problem Problem No nutritinoal problem at this time. Intervention/Recommendation Comments 1. Remove "large portion" from diet order, as pureed diet provides to meet >200% of lower end estimated kcal needs . Expected Outcomes/Goals Expected Outcomes/Goals 1. PO intake continue to meet at least 75% of estimated nutritional needs.
--- NOTE | 2016-12-13 00:15 | Progress Notes ---
DATE: 12/12/2016 Case was discussed with staff of the patient, reviewed the records. The patient continues to be confused, needing redirection. Continues to need help with his ADLs. The staff was feeding him. Unable to participate in meaningful conversation. He is compliant with the medication with no side effects, no sedation, no nausea, no extrapyramidal symptoms. We will continue to work with the patient in group therapy, milieu therapy, and adjust medications as needed. JOB# [id number]
--- NOTE | 2016-12-13 08:36 | General Progress Note ---
Subjective - Review of Systems Events since last encounter: no distress patient continues to be confused Objective - Results Result Diagrams: 11/29/16 15:56 12/11/16 07:40 Recent Labs: Laboratory Last Values WBC 9.3 Th/cmm (4.8-10.8) 11/29/16 15:56 RBC 5.08 Mil/cmm (3.80-5.80) 11/29/16 15:56 Hgb 15.7 gm/dL (12-16) 11/29/16 15:56 Hct 45.8 % (41.0-60) 11/29/16 15:56 MCV 90.2 fl (80-99) 11/29/16 15:56 MCH 30.9 pg (27.0-31.0) 11/29/16 15:56 MCHC Differential 34.2 pg (28.0-36.0) 11/29/16 15:56 RDW 12.9 % (11.5-20.0) 11/29/16 15:56 Plt Count 234 Th/cmm (150-400) 11/29/16 15:56 MPV 8.6 fl 11/29/16 15:56 Neutrophils % 54.5 % (40.0-80.0) 11/29/16 15:56 Lymphocytes % 35.8 % (20.0-50.0) 11/29/16 15:56 Monocytes % 7.0 % (2.0-10.0) 11/29/16 15:56 Eosinophils % 2.0 % (0.0-5.0) 11/29/16 15:56 Basophils % 0.7 % (0.0-2.0) 11/29/16 15:56 Sodium 134 mEq/L (136-145) L 12/11/16 07:40 Potassium 3.8 mEq/L (3.5-5.1) 12/11/16 07:40 Chloride 103 mEq/L (98-107) 12/11/16 07:40 Carbon Dioxide 27.0 mEq/L (21.0-31.0) 12/11/16 07:40 Anion Gap 7.8 (7.0-16.0) 12/11/16 07:40 BUN 21 mg/dL (7-25) 12/11/16 07:40 Creatinine 1.0 mg/dL (0.7-1.3) 12/11/16 07:40 Est GFR ( Amer) TNP 12/11/16 07:40 Est GFR (Non-Af Amer) TNP 12/11/16 07:40 BUN/Creatinine Ratio 21.0 12/11/16 07:40 Glucose 91 mg/dL (70-105) 12/11/16 07:40 Calcium 8.8 mg/dL (8.6-10.3) 12/11/16 07:40 Total Bilirubin 1.0 mg/dL (0.3-1.0) 12/11/16 07:40 AST 19 U/L (13-39) 12/11/16 07:40 ALT 17 U/L (7-52) 12/11/16 07:40 Alkaline Phosphatase 55 U/L (34-104) 12/11/16 07:40 Total Protein 6.0 gm/dL (6.0-8.3) 12/11/16 07:40 Albumin 3.6 gm/dL (4.2-5.5) L 12/11/16 07:40 Globulin 2.4 gm/dL 12/11/16 07:40 Albumin/Globulin Ratio 1.5 (1.0-1.8) 12/11/16 07:40 Triglycerides 193 mg/dL (<150) H 11/29/16 15:56 Cholesterol 130 mg/dL (<200) 11/29/16 15:56 LDL Cholesterol Direct 65 mg/dL (75-193) L 11/29/16 15:56 HDL Cholesterol 43 mg/dL (23-92) 11/29/16 15:56 TSH 1.13 uIU/ml (0.34-5.60) 11/29/16 15:56 Salicylates < 25.0 mg/L (30.0-100.0) L 11/29/16 15:56 Acetaminophen < 10.0 ug/mL (10.0-30.0) L 11/29/16 15:56 Ethyl Alcohol < 10 mg/dL (0-10) 11/29/16 15:56 RPR NONREACTIVE (NONREACTIVE) 11/29/16 15:56 - Physical Exam Vitals and I&O: Vital Signs Temp 98.4 F 12/13/16 06:43 Pulse 64 12/13/16 06:43 Resp 20 12/13/16 06:43 BP 104/57 12/13/16 06:43 Pulse Ox 97 12/13/16 06:43 Intake & Output 12/12/16 12/13/16 12/13/16 18:59 06:59 18:59 Intake Total 800 120 Balance 800 120 Intake: Oral 800 120 Other: # Voids 4 3 # Bowel Movements 1 0 Active Medications: Current Medications Acetaminophen (Tylenol) 650 mg PO Q4HR PRN PRN Reason: Pain (Mild) Stop: 01/28/17 20:56 Buspirone HCl (Buspar) 10 mg PO BID ELVA PRN Reason: Protocol Stop: 01/29/17 08:59 Last Admin: 12/12/16 17:10 Dose: 10 mg Docusate Sodium (Colace) 100 mg PO DAILY [facility] Stop: 01/29/17 08:59 Last Admin: 12/12/16 08:39 Dose: 100 mg Lorazepam (Ativan) 1 mg PO Q6H PRN; Protocol PRN Reason: Anxiety/Agitation Stop: 01/28/17 20:42 Last Admin: 12/09/16 02:07 Dose: 1 mg Magnesium Hydroxide (Milk Of Magnesia) 30 ml PO HS PRN PRN Reason: Constipation Stop: 01/28/17 20:42 Quetiapine Fumarate (Seroquel) 50 mg PO HS ELVA PRN Reason: Protocol Stop: 02/07/17 20:59 Last Admin: 12/12/16 20:38 Dose: 50 mg Quetiapine Fumarate (Seroquel) 50 mg PO BID [facility] Stop: 02/10/17 16:59 Last Admin: 12/12/16 17:10 Dose: 50 mg Zolpidem Tartrate (Ambien) 5 mg PO HS ELVA Stop: 01/28/17 20:59 Last Admin: 12/12/16 20:38 Dose: 5 mg General: No acute distress HEENT: Atraumatic Cardiovascular: Regular rate, Normal S1 Assessment/Plan - Problem List Patient Problems: All Active Problems H/O diabetes mellitus (Acute) Z86.39 H/O: HTN (hypertension) (Acute) Z86.79 severe agitation (Acute) - Assessment Assessment: H/O diabetes mellitus (Acute) Z86.39 H/O: HTN (hypertension) (Acute) Z86.79 severe agitation (Acute) - Plan Plan: cpm Nutritional Asmnt/Malnutr-PDOC - Dietary Evaluation Malnutrition Findings (Please click <Entered> for more info): Nutritional Asmnt/Malnutrition Start: 12/06/16 19: 17 Text: Status: Complete Freq: Document 12/06/16 19:17 GSMARY GRACE (Rec: 12/06/16 19:29 [email or web address] [email or web address]) Nutritional Asmnt/Malnutrition Patient General Information Nutritional Screening Moderate Risk Screening Diagnosis Severe agitation, r/o hx DM Pertinent Medical Hx/Surgical Hx HTN Subjective Information 75 year old male. Pt was awake and appeared guarded during visit, only provided yes and no responses, did not provide much nutrition hx. No severe muscle fat wasting noted, mild wasting to chest. CBW 145.8lb via bedscale, questionable difference with EMR weight, pt did not answer to UBW. Avg PO intake 75% of meals since adm , meeting nutritinoal needs. Pt is edentulous. No nutritional concerns per nursing staff. Current Diet Order/ Nutrition Support Pureed, large portions, KYLE Pertinent Medications Colace, MOM, Seroquel Pertinent Labs 11/29: BUN 26H, glucose 115H, triglycerides 193H Nutritional Hx/Data Height 1.73 m Height (Calculated Centimeters) 172.7 Current Weight (lbs) 66.134 kg Weight (Calculated Kilograms) 66.1 Weight (Calculated Grams) 89879.8 [place] Body Weight 154 Weight Status Approriate GI Symptoms Food Allergies No Skin Integrity/Comment: Dionte 16. Skin intact. Estimated Nutritional Goals BEE in Kcals: Using Current wt Calories/Kcals/Kg CBW 145.8lb/66.3kg Kcals Calculated 1658-1989kcal (25-30kcal/kg) Protein: Using Current wt Protein Calculated 66g (1g/kg) Fluid: ml 1658-1989ml (1ml/kcal) Nutritional Problem 1. Problem Problem No nutritinoal problem at this time. Intervention/Recommendation Comments 1. Remove "large portion" from diet order, as pureed diet provides to meet >200% of lower end estimated kcal needs . Expected Outcomes/Goals Expected Outcomes/Goals 1. PO intake continue to meet at least 75% of estimated nutritional needs.
--- NOTE | 2016-12-14 16:20 | Discharge Summary ---
DATE OF DISCHARGE: 12/13/2016 PATIENT'S AGE: 75. SEX: Male. FINAL DIAGNOSIS/PRIMARY DIAGNOSIS: Unspecified psychosis. SECONDARY DIAGNOSIS: Dementia, moderate with psychotic features. REASON FOR HOSPITALIZATION: The patient was admitted to the hospital because of increased agitation and irritability in the long term where he lives. He also was in angry and in irritable mood and also easily agitated. HOSPITAL COURSE: The patient continued to be agitated and irritable. The patient also continued to be angry. He also was having mood swings. He also was responding to himself and actively talking to himself. Gradually, the patient's affect was brighter. The patient was less irritable and less agitated. The patient also was interacting more. The patient was not suicidal or homicidal and the patient was compliant with taking his medications. The patient continued to take Seroquel with no side effects. Physical examination of the patient showed no major medical problems while in the hospital. AFTER DISCHARGE PLANS: The patient discharged from the hospital and the patient returned to live in his long term. Outpatient treatment and followup continue as an outpatient. EXPECTED OUTCOME AFTER DISCHARGE: Fair if the patient continues with his outpatient treatment and follow up with discharge plans. JOB# [id number]
== END 2016-12-13 14:30 | disposition home or self-care (01) | DRG 885 ==
LOC: ER 15:28 → GERO 18:30
PROVIDERS: ADMIT Psychiatry & Neurology Psychiatry; ATTEND Psychiatry & Neurology Psychiatry
DX: F29 Unspecified psychosis not due to a substance or known physiological condition (principal); F03.91 Unspecified dementia, unspecified severity, with behavioral disturbance; E11.9 Type 2 diabetes mellitus without complications; I10 Essential (primary) hypertension; E78.5 Hyperlipidemia, unspecified; F41.9 Anxiety disorder, unspecified; F31.9 Bipolar disorder, unspecified; M19.90 Unspecified osteoarthritis, unspecified site; Z86.73 Personal history of transient ischemic attack (TIA), and cerebral infarction without residual deficits; Z88.0 Allergy status to penicillin; Z83.3 Family history of diabetes mellitus; Z82.49 Family history of ischemic heart disease and other diseases of the circulatory system
CPT/HCPCS: 36415-UA; 80053-TC; 80061-TC; 80320-TC; 80329-TC; 84443-TC; 85025-TC; 86592-TC; 93005; J1200; J1630; J1956; J2060; Z7610